=== PATIENT | male | born 1950 | race Hispanic/Latino ===

== ENCOUNTER 2017-09-21 18:15 | Inpatient (IN) | payer MEDICARE, OTHER ==
[2017-09-21] MEDS ORDERED: ZOFRAN IV ONE (19:13)
[2017-09-21] MEDS ORDERED: ANTIVERT PO ONE (19:13)
[2017-09-21] MEDS ORDERED: NACL 0.9% 250ML 250 ML IV ONE (19:13)
--- NOTE | 2017-09-21 19:18 | Emergency Department Report ---
ED Neuro Deficit HPI - General Chief Complaint: Dizziness Stated Complaint: DIZZY Time Seen by Provider: 09/21/17 18:53 Source: patient, EMS (ems notes not available at time of chart dictation), RN notes reviewed Mode of arrival: Ambulatory Limitations: No Limitations, Physical Limitation - History of Present Illness Initial Comments: This is a 66-year-old male. The patient is previously unknown to this provider. 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 The patient presents to the ER with a complaint of lightheadedness, unsteady gait, nausea, and "abdominal heaving." History symptoms are constant. They started between 2:30 and 3:00 PM. They do not radiate anywhere. They do not have exacerbating or relieving factors with the exception of attempting to walk. Patient denies headache, neck pain, chest pain, abdominal pain. He denies tinnitus, denies change in auditory acuity. He admits to black stool but he also admits to chronic ferrous sulfate supplementation. -: Sudden Location: ataxia Presenting Symptoms: Absent: Weak/Paralyzed One Side, Sudden, Severe Headache, Blurred/Loss of Vision, Facial Droop/Numbness, Unable to Speak Clearly, Altered Mental Status History of same: No Place: home Severity: moderate Quality: other Improves With: none Worsens With: none On Anticoagulants: No Context: sudden onset Associated Symptoms: malise, nausea/vomiting, vertigo, other. denies: confusion , chest pain, cough, diaphoresis, fever/chills, headaches, loss of appetite, seizures, shortness of breath, syncope, weakness - Related Data Home Medications: Previous Rx's Medication Instructions Recorded Last Taken Type Clopidogrel [Plavix] 75 mg PO QDAY #30 tablet 09/23/17 Unknown Rx Allergies/Adverse Reactions: Allergies Allergy/AdvReac Type Severity Reaction Status Date / Time Penicillins Allergy Rash Verified 09/21/17 18:55 ED Review of Systems ROS: Stated complaint: DIZZY Other details as noted in HPI Comment: All other systems reviewed and negative ED Past Medical Hx - Past Medical History Previous Medical History?: Yes Hx Arthritis: Yes Additional medical history: [place] palsy - Surgical History Past Surgical History?: Yes Hx Cholecystectomy: Yes Hx Appendectomy: Yes - Social History Smoking Status: Never Smoker Substance Use Type: None - Medications Home Medications: Home Medications Medication Instructions Recorded Confirmed Last Taken Type Clopidogrel [Plavix] 75 mg PO QDAY #30 tablet 09/23/17 Unknown Rx ED Neuro Physical Exam - General Limitations: No Limitations General appearance: alert, in no apparent distress Suspected Stroke: Yes - Head Head exam: Present: atraumatic, normocephalic - Eye Eye exam: Present: normal appearance, PERRL, EOMI, other (visual acuity intact to finger counting, color perception, reading at a close distance). Absent: nystagmus - ENT ENT exam: Present: normal exam, normal orophraynx, mucous membranes moist, normal external ear exam - Neck Neck exam: Present: normal inspection, full ROM - Respiratory Respiratory exam: Present: normal lung sounds bilaterally. Absent: respiratory distress - Cardiovascular Cardiovascular Exam: Present: regular rate, normal rhythm, normal heart sounds. Absent: systolic murmur, diastolic murmur, rubs, gallop - GI/Abdominal GI/Abdominal exam: Present: soft, normal bowel sounds. Absent: distended, tenderness, guarding, rebound, rigid - Rectal Rectal exam: Present: normal inspection, normal rectal tone, heme (+) stool - Extremities Exam Extremities exam: Present: normal inspection, full ROM, normal capillary refill. Absent: pedal edema, joint swelling, calf tenderness - Back Exam Back exam: Present: normal inspection, full ROM. Absent: tenderness, CVA tenderness (R), paraspinal tenderness, vertebral tenderness - Neurological Exam Neurological exam: Present: alert, oriented X3, abnormal gait (there is a positive Romberg examination. The patient walks with a broad-based gait. He is unable to perform tandem examination/walk.), other (there is 5 out of 5 strength in the bilateral upper and lower extremities. Sensation is intact to light touch in the bilateral upper and lower extremities. [id number] is intact bilaterally. There is no pronator drift. There is no past pointing. Extraocular movements are intact bilaterally.visual acuity intact to finger counting, color perception, reading at a close distance. Facial sensation intact to light touch in the bilateral V1, V2, V3 distribution. Shoulder shrug is intact bilaterally. The tongue is midline. Hearing is intact bilaterally. There is chronic right sided facial weakness.). Absent: motor sensory deficit - NIHSS Assessment Interval: Baseline 1a. Level of Consciousness: alert 1b. LOC Questions: answers correctly 1c. LOC Commands: performs tasks correctly 2. Best Gaze: normal 3. Visual: no visual loss 4. Facial Palsy: partial paralysis 5b. Motor Arm Right: no drift 5a. Motor Arm Left: no drift 6a. Motor Leg Left: no drift 6b. Motor Leg Right: no drift 7. Limb Ataxia: absent 8. Sensory: normal 9. Best Language: no aphasia 10. Dysarthria: normal 11. Extinction/Inattention: no abnormality Total Score: 2 Stroke Severity: Minor Stroke - Psychiatric Psychiatric exam: Present: normal affect, normal mood - Skin Skin exam: Present: warm, dry, intact, normal color. Absent: rash ED Course Vital Signs 09/21/17 09/21/17 09/21/17 18:26 18:35 18:44 Temperature 94.4 F L Pulse Rate 71 80 Respiratory 15 23 Rate Blood Pressure 134/87 134/87 O2 Sat by Pulse 93 Oximetry 09/21/17 09/21/17 09/21/17 18:46 19:10 19:24 Temperature Pulse Rate 71 Respiratory 14 16 Rate Blood Pressure 134/87 134/87 O2 Sat by Pulse 91 92 99 Oximetry 09/21/17 09/21/17 09/21/17 19:30 19:40 19:50 Temperature Pulse Rate Respiratory Rate Blood Pressure 142/87 142/87 146/90 O2 Sat by Pulse 99 93 99 Oximetry 09/21/17 09/21/17 09/21/17 20:08 20:10 20:20 Temperature Pulse Rate Respiratory Rate Blood Pressure O2 Sat by Pulse 99 97 97 Oximetry 09/21/17 09/21/17 09/21/17 20:30 20:40 20:50 Temperature Pulse Rate Respiratory Rate Blood Pressure O2 Sat by Pulse 98 93 96 Oximetry 09/21/17 09/21/17 09/21/17 21:00 21:10 21:20 Temperature Pulse Rate Respiratory Rate Blood Pressure 142/87 142/87 142/87 O2 Sat by Pulse 98 96 95 Oximetry 09/21/17 09/21/17 09/21/17 21:30 21:40 21:50 Temperature Pulse Rate Respiratory Rate Blood Pressure 142/87 142/87 142/87 O2 Sat by Pulse 96 96 93 Oximetry 09/21/17 09/21/17 09/21/17 22:00 22:10 22:20 Temperature Pulse Rate Respiratory Rate Blood Pressure 142/87 142/87 142/87 O2 Sat by Pulse 94 92 97 Oximetry 09/21/17 09/21/17 09/21/17 22:30 22:40 22:50 Temperature Pulse Rate Respiratory Rate Blood Pressure 142/87 142/87 142/87 O2 Sat by Pulse 97 96 97 Oximetry 09/21/17 09/21/17 09/21/17 23:00 23:10 23:20 Temperature Pulse Rate Respiratory Rate Blood Pressure 142/87 142/87 142/87 O2 Sat by Pulse 93 96 98 Oximetry 09/21/17 09/21/17 09/21/17 23:30 23:40 23:50 Temperature Pulse Rate Respiratory Rate Blood Pressure 142/87 142/87 142/87 O2 Sat by Pulse 94 93 92 Oximetry 09/22/17 09/22/17 00:00 00:38 Temperature 98.7 F Pulse Rate 80 Respiratory 18 Rate Blood Pressure 142/87 129/80 O2 Sat by Pulse 90 95 Oximetry - Reevaluation(s) Reevaluation #1: 09/21/17 19:18 Differential diagnosis, including not limited to: GI bleed, subacute stroke, posterior circulation event, intra-abdominal infection Assessment and plan: 66-year-old male with a primary complaint of unsteady gait and weakness. He has no lateralizing deficits but does have a few posterior circulation findings. He believes his symptoms started somewhere between 2:30 and 3:00 PM. He also has brown stool on rectal examination which appears to be trace guaiac positive. His abdomen is soft and benign. Code stroke is called overhead. Patient presented at 6:26 PM, as per triage documentation, given concern for GI bleed, not appropriate for thrombolysis at this time, we will obtain a noncontrast CT scan of the brain, discussed with consulting stroke neurology, obtain a noncontrast CT scan of the abdomen and pelvis, and a CT angiogram of the head and neck. 09/21/17 19:19 Reevaluation #2: 09/21/17 19:20 Rectal temperature was 96.8. Initial oral temperature of 94 is most likely an error. Reevaluation #3: 09/21/17 20:[address] scan of the brain is negative. X-ray of the chest was negative. Case, physical exam findings, history presented to consulting neurology, Dr. Gila Bateman He does not recommend TPA at this time, but agrees with plan to obtain CT angiogram of the head and neck. Reevaluation #4: 09/21/17 21:20 CAT scan of the abdomen and pelvis negative. CT and exam of the head and neck negative. Case presented to the Hospital physician, Dr. Singer, she accepts the patient to the medical service. - Lab Data Result diagrams: 09/21/17 19:04 09/21/17 19:04 Lab Results 09/21/17 09/21/17 09/21/17 Range/Units 19:04 19:04 19:16 WBC 12.2 H (4.5-11.0) K/mm3 RBC 4.33 (3.65-5.03) M/mm3 Hgb 14.3 (11.8-15.2) gm/dl Hct 42.0 (35.5-45.6) % MCV 97 H (84-94) fl MCH 33 H (28-32) pg MCHC 34 (32-34) % RDW 13.1 L (13.2-15.2) % Plt Count 195 (140-440) K/mm3 Lymph % (Auto) 8.9 L (13.4-35.0) % [place] % (Auto) 8.1 H (0.0-7.3) % Eos % (Auto) 0.6 (0.0-4.3) % Baso % (Auto) 0.5 (0.0-1.8) % Lymph # 1.1 L (1.2-5.4) K/mm3 [place] # 1.0 H (0.0-0.8) K/mm3 Eos # 0.1 (0.0-0.4) K/mm3 Baso # 0.1 (0.0-0.1) K/mm3 Seg Neutrophils % 81.9 H (40.0-70.0) % Seg Neutrophils # 10.0 H (1.8-7.7) K/mm3 PT 13.0 (12.2-14.9) Sec. INR 0.94 (0.87-1.13) APTT 26.0 (24.2-36.6) Sec. Thrombin Time 16.4 (15.1-19.6) Sec. Sodium 139 (137-145) mmol/L Potassium 3.8 (3.6-5.0) mmol/L Chloride 100.3 (98-107) mmol/L Carbon Dioxide 28 (22-30) mmol/L Anion Gap 15 mmol/L BUN 10 (9-20) mg/dL Creatinine 0.7 L (0.8-1.5) mg/dL Estimated GFR > 60 ml/min BUN/Creatinine Ratio 14 % Glucose 118 H (75-100) mg/dL Calcium 8.6 (8.4-10.2) mg/dL Total Creatine Kinase (55-170) units/L CK-MB (CK-2) (0.0-4.0) ng/mL CK-MB (CK-2) Rel Index (0-4) Troponin T (0.00-0.029) ng/mL Blood Type Antibody Screen 09/21/17 09/21/17 Range/Units 19:16 19:16 WBC (4.5-11.0) K/mm3 RBC (3.65-5.03) M/mm3 Hgb (11.8-15.2) gm/dl Hct (35.5-45.6) % MCV (84-94) fl MCH (28-32) pg MCHC (32-34) % RDW (13.2-15.2) % Plt Count (140-440) K/mm3 Lymph % (Auto) (13.4-35.0) % [place] % (Auto) (0.0-7.3) % Eos % (Auto) (0.0-4.3) % Baso % (Auto) (0.0-1.8) % Lymph # (1.2-5.4) K/mm3 [place] # (0.0-0.8) K/mm3 Eos # (0.0-0.4) K/mm3 Baso # (0.0-0.1) K/mm3 Seg Neutrophils % (40.0-70.0) % Seg Neutrophils # (1.8-7.7) K/mm3 PT (12.2-14.9) Sec. INR (0.87-1.13) APTT (24.2-36.6) Sec. Thrombin Time (15.1-19.6) Sec. Sodium (137-145) mmol/L Potassium (3.6-5.0) mmol/L Chloride (98-107) mmol/L Carbon Dioxide (22-30) mmol/L Anion Gap mmol/L BUN (9-20) mg/dL Creatinine (0.8-1.5) mg/dL Estimated GFR ml/min BUN/Creatinine Ratio % Glucose (75-100) mg/dL Calcium (8.4-10.2) mg/dL Total Creatine Kinase 81 (55-170) units/L CK-MB (CK-2) 2.7 (0.0-4.0) ng/mL CK-MB (CK-2) Rel Index 3.3 (0-4) Troponin T < 0.010 (0.00-0.029) ng/mL Blood Type O POSITIVE Antibody Screen Negative - EKG Data -: EKG Interpreted by Me EKG shows normal: sinus rhythm When compared to previous EKG there are: previous EKG unavailable 09/21/17 22:38 Normal sinus, 77 bpm, left axis deviation, left anterior fascicular block, not having chest pain, not consistent with STEMI, unremarkable EKG - Radiology Data Radiology results: pending, report reviewed, image reviewed - Core Measures Measure Exclusions: not indicated Critical care attestation.: If time is entered above; I have spent that time in minutes in the direct care of this critically ill patient, excluding procedure time. ED Disposition Clinical Impression: Unsteady gait Disposition: OP ADMIT IP TO THIS HOSP Is pt being admited?: Yes Does the pt Need Aspirin: Yes Condition: Stable
[2017-09-21 19:26] LABS: Basophils # (Auto) 0.1 K/mm3 (0.0-0.1); Basophils % (Auto) 0.5 % (0.0-1.8); Eosinophils # (Auto) 0.1 K/mm3 (0.0-0.4); Eosinophils % (Auto) 0.6 % (0.0-4.3); Hemoglobin 14.3 gm/dl (11.8-15.2); Lymphocytes # (Auto) 1.1 K/mm3 (1.2-5.4); Lymphocytes % (Auto) 8.9 % (13.4-35.0); Mean Corpuscular HGB Conc 34 % (32-34); Mean Corpuscular Hemoglobin 33 pg (28-32); Mean Corpuscular Volume 97 fl (84-94); Monocytes % (Auto) 8.1 % (0.0-7.3); Platelet Count 195 K/mm3 (140-440); Red Blood Count 4.33 M/mm3 (3.65-5.03); Red Cell Distribution Width 13.1 % (13.2-15.2)
--- NOTE | 2017-09-21 19:31 | Cat Scan Report ---
FINAL REPORT EXAM: CT HEAD/BRAIN WO CON HISTORY: Stroke symptoms TECHNIQUE: Standard unenhanced CT of the head at 5.0 millimeter axial increments. PRIORS: None. FINDINGS: The ventricular system is normal in size and configuration. There is no evidence for parenchymal volume loss. There is no evidence for mass lesion, mass effect, midline shift, acute intracranial hemorrhage, or acute ischemia/ infarction. No evidence for acute skull fracture is seen. No abnormality in the overlying scalp soft tissues is seen. Visualized paranasal sinuses are clear. IMPRESSION: Negative CT of the head. No acute intracranial process noted.
[2017-09-21 19:37] LABS: INR 0.94 (0.87-1.13)
[2017-09-21 19:38] LABS: Thrombin Time 16.4 Sec. (15.1-19.6)
[2017-09-21 19:48] LABS: BUN/Creatinine Ratio 14; Blood Urea Nitrogen 10 mg/dL (9-20); Calcium 8.6 mg/dL (8.4-10.2); Hemolysis Index 4
[2017-09-21 19:48] LABS: Creatine Kinase MB 2.7 ng/mL (0.0-4.0)
--- NOTE | 2017-09-21 20:06 | XRay Report ---
FINAL REPORT EXAM: XR CHEST 1V AP HISTORY: CVA; PNA TECHNIQUE: AP portable view of the chest PRIORS: None. FINDINGS: Lines, tubes, and devices: N/A Lungs and pleura: Trachea is normal in position. Lungs are clear of infiltrate, pleural effusion, vascular congestion, or pneumothorax. Cardiomediastinal silhouette: Cardiac and mediastinal silhouettes are unremarkable. Other: Bony structures are intact. IMPRESSION: No acute cardiopulmonary process seen.
--- NOTE | 2017-09-21 20:47 | Cat Scan Report ---
FINAL REPORT PROCEDURE: CT ANGIO NECK TECHNIQUE: Computerized tomographic angiography of the neck was performed after the IV injection of iodinated nonionic contrast including image processing. The image data was postprocessed using 2-dimensional multiplanar reformatted (MPR) and 3-dimensional (MIP and/or volume rendered) techniques. HISTORY: stroke sx COMPARISON: No prior studies are available for comparison. Note: Assessment of carotid artery stenosis is based on measurement of the distal internal carotid artery diameter as the denominator for stenosis calculations and the [place] Symptomatic Carotid Endarterectomy Trial (NASCET) stenosis criteria . CPT 3100F FINDINGS: Non vascular cervical structures: No significant abnormality . Aortic arch: Normal . Right carotid artery: Normal . Left carotid artery: Normal . Vertebral arteries: Normal . Multilevel cervical spondylosis is noted in the form of uncovertebral and facet degenerative changes and disc osteophyte complex formation resulting in multilevel neural foraminal stenosis. IMPRESSION: No evidence of significant carotid or vertebral stenosis. Multilevel cervical spondylosis.
--- NOTE | 2017-09-21 20:53 | Cat Scan Report ---
FINAL REPORT PROCEDURE: CT ANGIO HEAD TECHNIQUE: Computerized tomographic angiography of the head was performed after the IV injection of iodinated nonionic contrast including image processing. The image data was postprocessed using 2-dimensional multiplanar reformatted (MPR) and 3-dimensional (MIP and/or volume rendered) techniques. HISTORY: stroke sx COMPARISON: No prior studies are available for comparison. FINDINGS: Intracranial vessels: Carotid siphon: Atherosclerotic calcification is noted without any significant stenosis Anterior cerebral: Normal. Middle cerebral: Normal. Posterior cerebral:Normal. Vertebral arteries including basilar: Normal. Aneurysms: None. Dural sinuses: Normal. IMPRESSION: No significant stenosis or aneurysm formation.
--- NOTE | 2017-09-21 21:07 | Cat Scan Report ---
FINAL REPORT PROCEDURE: CT ABDOMEN PELVIS WO CON TECHNIQUE: Computerized axial tomography of the abdomen and pelvis was performed without intravenous contrast. This study is performed without intravascular contrast material and its sensitivity for abdominal and pelvic pathology, including neoplasms, inflammation, abscess, free fluid, thrombosis, arterial dissection and infarction, is reduced compared with a contrast enhanced study. HISTORY: abd pain COMPARISON: No prior studies are available for comparison. FINDINGS: Prominent interstitial markings are noted in the dependent portions of bilateral lower lobes. Liver, spleen, and adrenal glands are within normal limits. Bilateral kidneys demonstrate normal density without calculi or hydronephrosis. Urinary bladder is normally distended with normal outlines. Aorta is of normal caliber. There is no free fluid or free air. Status post cholecystectomy. Small bowel loops are within normal limits. Multiple colonic diverticula are noted without evidence of diverticulitis. There is mild degree residual stool. Appendix is not distinctly visualized. There are no inflammatory changes in the right lower quadrant. Mild prostatomegaly is identified. Mild degree degenerative changes are noted involving the lumbar spine. IMPRESSION: No acute intra-abdominal or pelvic pathology as visualized on this noncontrast study. Mild degree residual stool..
[2017-09-21] MEDS ORDERED: BABY ASPIRIN PO ONE (21:21)
[2017-09-21] MEDS ORDERED: SODIUM CHLORIDE FLUSH SYRINGE 10 ML IV PRN (23:08)
[2017-09-21] MEDS ORDERED: DULCOLAX PR PRN (23:08)
[2017-09-21] MEDS ORDERED: MILK OF MAGNESIA PO PRN (23:08)
[2017-09-21] MEDS ORDERED: ZOFRAN IV PRN (23:08)
[2017-09-21] MEDS ORDERED: TYLENOL PO PRN (23:08)
--- NOTE | 2017-09-21 23:16 | History and Physical Report ---
History of Present Illness Date of examination: 09/21/17 History of present illness: 66-year-old man history of hypothyroidism, hyperlipidemia, Alexander's palsy comes emergency room because he developed slurred speech, dizziness and his gait was off. Symptoms started around 3 PM, his symptoms are mostly resolve, he still have some dizziness. Has black stool but on iron therapy PAST MEDICAL HISTORY: Hypothyroidism, hyperlipidemia, Alexander's palsy PAST SURGICAL HISTORY: Hemorrhoidectomy, hernia repair, appendectomy, cholecystectomy SOCIAL HISTORY: Denies alcohol, tobacco, drugs FAMILY HISTORY: Hypertension Medications and Allergies Allergies Allergy/AdvReac Type Severity Reaction Status Date / Time Penicillins Allergy Rash Verified 09/21/17 18:55 Active Meds: Active Medications Acetaminophen (Tylenol) 650 mg PO Q4H PRN PRN Reason: Pain, Mild (1-3) Aspirin (Aspirin) 325 mg PO QDAY LEEANN Bisacodyl (Dulcolax) 10 mg MO QDAY PRN PRN Reason: Constipation Magnesium Hydroxide (Milk Of Magnesia) 30 ml PO Q4H PRN PRN Reason: Constipation Ondansetron HCl (Zofran) 4 mg IV Q8H PRN PRN Reason: N/V unrelieved by Reglan Sodium Chloride (Sodium Chloride Flush Syringe 10 Ml) 10 ml INJ PRN PRN PRN Reason: LINE FLUSH Exam - Physical Exam Narrative exam: Gen. appearance: Patient lying in bed, no apparent distress HEENT: Normocephalic, atraumatic, pupils equally round and reactive to light, extraocular movement intact, and no sclericterus,. No JVD or thyromegaly or nodule,neck supple, no carotid bruit ,mucous membranes moist, no exudate or erythema Heart: S1, S2, regular rate and rhythm Lungs: Clear to auscultation bilaterally, breathing comfortable Abdomen: Positive bowel sounds, nontender, nondistended, no organomegaly Extremity: No edema, cyanosis, clubbing Skin: No rash, nodules, warm, dry Neuro: Oriented 3, cranial nerves II-12 intact, speech is fluent, motor and sensory intact - Constitutional Vitals: Temp Pulse Resp BP Pulse Ox 94.4 F L 71 16 134/87 92 09/21/17 18:26 09/21/17 18:46 09/21/17 19:10 09/21/17 18:46 09/21/17 19:10 Results - Labs CBC & Chem 7: 09/21/17 19:04 09/21/17 19:04 Labs: Abnormal lab results 09/21/17 09/21/17 Range/Units 19:04 19:04 WBC 12.2 H (4.5-11.0) K/mm3 MCV 97 H (84-94) fl MCH 33 H (28-32) pg RDW 13.1 L (13.2-15.2) % Lymph % (Auto) 8.9 L (13.4-35.0) % [place] % (Auto) 8.1 H (0.0-7.3) % Lymph # 1.1 L (1.2-5.4) K/mm3 [place] # 1.0 H (0.0-0.8) K/mm3 Seg Neutrophils % 81.9 H (40.0-70.0) % Seg Neutrophils # 10.0 H (1.8-7.7) K/mm3 Creatinine 0.7 L (0.8-1.5) mg/dL Glucose 118 H (75-100) mg/dL - Imaging and Cardiology EKG: image reviewed Chest x-ray: image reviewed CT scan - abdomen: image reviewed CT Scan - head: image reviewed CT scan - pelvis: image reviewed Assessment and Plan CTA head and neck reviewed Assessment TIA Heme positive stool Hyperlipidemia Hypothyroidism Plan Admit to medicine MRI of the head, echo, do neuro checks, swallow screen Consult neurology, physical and occupational therapy GI consult, stat statin, hold aspirin for now Continue appropriate outpatient medications
[2017-09-22 07:14] LABS: Chol/HDL Ratio 2.93 %
--- NOTE | 2017-09-22 08:57 | History and Physical Report ---
History of Present Illness Date of examination: 09/22/17 Date of admission: 09/21/17 23:08 Chief complaint: FOCUSED NEURO CONSULT NOTE CC: I am asked to see this 66 M for an episode of slurred speech, vertigo and unsteady gait since yesterday, all sx now resolved. HPI: Patient in [facility] has enjoyed good health. 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 He has a heme pos stool at this time and will be worked up for this. Hx from highly articulate patient + his in room + chart. Yesterday between 2 and 3 pm while walking to his truck, he noted mild gait unsteadiness, got into his truck OK, then noted a sensation that the truck was moving before he even started it. He drove off anyway, noted mild vertigo, mild [place] without vomiting, but had no difficulty driving apparently. He called his and son and although he has was not aware of it, they noted that his speech was slurred and hard to understand. To our ED, where NIHSS was 2 due to a remote right Preston Palsy. Head CT (images reviewed) was nl, Head and Neck CTA were nl (images reviewed). Gait was somewhat broad based speech had returned to nl. Dr Reagan Soares's detailed neuro exam reviewed. He was on a regimen of ASA 81 mg daily from his port crane operator. ROS: no headache, double vision, visual impairment, weakness of any extremity, LOC, neck pain or stiffness. An 11 point ROS is negative. FH/SH not re-reviewed MEDS/ALLERGIES - see chart PE HEENT - nl save for old R Preston Palsy NECK supple no bruits COR no m rubs LUNGS nl to A EXTREM no edema or evidence of trauma NEURO MS alert, oriented x 3, speech fluent, clear and without errors, follows all commands quickly and accurately, recent and remote memory intact CN II - 12 nl save for right UMN facial deficit from remote Preston Palsy, no nystagmus, EOM full, visual [place] full to finger confrontation MOT nl strenght all four extremities prox and dist 5/5 SENS intact to light touch throughout CEREB fnf nl bilat DTRs - 1+ and symm prox and dist all four extrem, great toes downgoing to plantar stim GAIT nl, not broad based DX IMP: 1. Posterior circulation TIA with vertigo, slurred speech, and ataxic gait, lasting less than 24 hrs with all sx now resolved, on ASA 81 mg/day 2. Heme pos stool 3. Hx skipping heart beats, followed by port crane operator RECC: 1. We await head MRI and echo cardiogram to complete neuro work up 2. In view of heme pos stool, would dc ASA and switch to Plavix BID 3. Go from there. Call as needed. Carisa Hollins MD Medications and Allergies Allergies Allergy/AdvReac Type Severity Reaction Status Date / Time Penicillins Allergy Rash Verified 09/21/17 18:55 Home Medications Medication Instructions Recorded Confirmed Last Taken Type No Known Home Medications [No 09/22/17 09/22/17 Unknown History Reported Home Medications] Active Meds: Active Medications Acetaminophen (Tylenol) 650 mg PO Q4H PRN PRN Reason: Pain, Mild (1-3) Bisacodyl (Dulcolax) 10 mg OR QDAY PRN PRN Reason: Constipation Magnesium Hydroxide (Milk Of Magnesia) 30 ml PO Q4H PRN PRN Reason: Constipation Ondansetron HCl (Zofran) 4 mg IV Q8H PRN PRN Reason: N/V unrelieved by Reglan Sodium Chloride (Sodium Chloride Flush Syringe 10 Ml) 10 ml IV PRN PRN PRN Reason: LINE FLUSH Physical Examination - Vital Signs Vital Signs: Vital Signs Temp Pulse Resp BP Pulse Ox 94.4 F L 71 15 134/87 93 09/21/17 18:26 09/21/17 18:26 09/21/17 18:26 09/21/17 18:26 09/21/17 18:26 Results - Laboratory Findings CBC and BMP: 09/21/17 19:04 09/21/17 19:04 Abnormal Lab Findings: Abnormal Labs 09/21/17 09/21/17 19:04 19:04 WBC 12.2 H MCV 97 H MCH 33 H RDW 13.1 L Lymph % (Auto) 8.9 L [place] % (Auto) 8.1 H Lymph # 1.1 L [place] # 1.0 H Seg Neutrophils % 81.9 H Seg Neutrophils # 10.0 H Creatinine 0.7 L Glucose 118 H
[2017-09-22] MEDS ORDERED: ASPIRIN PO SCH (10:00)
--- NOTE | 2017-09-22 10:00 | Progress Note ---
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 His symptoms are consistent with a TIA, and have now completely resolved within less than [address] abdomen and pelvis; no acute findings CT angiogram neck; no evidence of significant stenosis CT angiogram head; no significant stenosis or aneurysm formation Problems TIA Hyperlipidemia Hypothyroidism Plan fup MRi/mra neurology consult appreciated, plavix BID Continue appropriate outpatient medications History Interval history: Review of systems Constitutional: No fevers, no malaise, no joint pains CVS: No chest pain, no orthopnea, no dyspnea on exertion, no pedal edema GI: No abdominal pain, no diarrhea, no vomiting, no constipation Respiratory: No shortness of breath, no wheezing, no coughing Hospitalist Physical - Physical exam Narrative exam: General.: Appears well, no distress, nontoxic HEENT: Moist mucous membranes, extraocular muscles intact, no lymphadenopathy Neck: supple Cardiac: S1-S2 heard Lungs: clear to auscultation bilaterally Abdomen: soft , nontender, nondistended, bowel sounds positive Extremities: no edema clubbing or cyanosis Skin: no rash or lesions Neurologic: no gross focal deficits Psych: appropriate behavior, appropriate mood, corporative, judgment intact - Constitutional Vitals: Temp Pulse Resp BP Pulse Ox 98.2 F 88 20 123/82 95 09/22/17 03:46 09/22/17 04:20 09/22/17 08:33 09/22/17 03:46 09/22/17 03:46 Results - Labs CBC & Chem 7: 09/21/17 19:04 09/21/17 19:04 Labs: Laboratory Last Values WBC 12.2 K/mm3 (4.5-11.0) H 09/21/17 19:04 RBC 4.33 M/mm3 (3.65-5.03) 09/21/17 19:04 Hgb 14.3 gm/dl (11.8-15.2) 09/21/17 19:04 Hct 42.0 % (35.5-45.6) 09/21/17 19:04 MCV 97 fl (84-94) H 09/21/17 19:04 MCH 33 pg (28-32) H 09/21/17 19:04 MCHC 34 % (32-34) 09/21/17 19:04 RDW 13.1 % (13.2-15.2) L 09/21/17 19:04 Plt Count 195 K/mm3 (140-440) 09/21/17 19:04 Lymph % (Auto) 8.9 % (13.4-35.0) L 09/21/17 19:04 Emmons % (Auto) 8.1 % (0.0-7.3) H 09/21/17 19:04 Eos % (Auto) 0.6 % (0.0-4.3) 09/21/17 19:04 Baso % (Auto) 0.5 % (0.0-1.8) 09/21/17 19:04 Lymph # 1.1 K/mm3 (1.2-5.4) L 09/21/17 19:04 Emmons # 1.0 K/mm3 (0.0-0.8) H 09/21/17 19:04 Eos # 0.1 K/mm3 (0.0-0.4) 09/21/17 19:04 Baso # 0.1 K/mm3 (0.0-0.1) 09/21/17 19:04 Seg Neutrophils % 81.9 % (40.0-70.0) H 09/21/17 19:04 Seg Neutrophils # 10.0 K/mm3 (1.8-7.7) H 09/21/17 19:04 PT 13.0 Sec. (12.2-14.9) 09/21/17 19:16 INR 0.94 (0.87-1.13) 09/21/17 19:16 APTT 26.0 Sec. (24.2-36.6) 09/21/17 19:16 Thrombin Time 16.4 Sec. (15.1-19.6) 09/21/17 19:16 Sodium 139 mmol/L (137-145) 09/21/17 19:04 Potassium 3.8 mmol/L (3.6-5.0) 09/21/17 19:04 Chloride 100.3 mmol/L (98-107) 09/21/17 19:04 Carbon Dioxide 28 mmol/L (22-30) 09/21/17 19:04 Anion Gap 15 mmol/L 09/21/17 19:04 BUN 10 mg/dL (9-20) 09/21/17 19:04 Creatinine 0.7 mg/dL (0.8-1.5) L 09/21/17 19:04 Estimated GFR > 60 ml/min 09/21/17 19:04 BUN/Creatinine Ratio 14 % 09/21/17 19:04 Glucose 118 mg/dL (75-100) H 09/21/17 19:04 Calcium 8.6 mg/dL (8.4-10.2) 09/21/17 19:04 Total Creatine Kinase 81 units/L (55-170) 09/21/17 19:16 CK-MB (CK-2) 2.7 ng/mL (0.0-4.0) 09/21/17 19:16 CK-MB (CK-2) Rel Index 3.3 (0-4) 09/21/17 19:16 Troponin T < 0.010 ng/mL (0.00-0.029) 09/21/17 19:16 Triglycerides 85 mg/dL (2-149) 09/22/17 05:52 Cholesterol 141 mg/dL (50-199) 09/22/17 05:52 LDL Cholesterol Direct 86 mg/dL (50-130) 09/22/17 05:52 HDL Cholesterol 48 mg/dL (40-59) 09/22/17 05:52 Cholesterol/HDL Ratio 2.93 % 09/22/17 05:52 Blood Type O POSITIVE 09/21/17 19:16 Antibody Screen Negative 09/21/17 19:16
--- NOTE | 2017-09-22 11:16 | Magnetic Resonance Report ---
MRI OF THE BRAIN WITHOUT CONTRAST: HISTORY: CVA PROCEDURE: Multiplanar, multisequence MR imaging of the brain without IV contrast was performed. FINDINGS: Compared to the CT head dated 09/21/17. Mild nonspecific chronic white matter changes are identified. Otherwise, the brain parenchyma signal intensity and its reynolds white interface are within normal limits on all sequences. No evidence for acute ischemia, hemorrhage or mass. No chronic infarct or extra-axial fluid collection. The midline structures are central. The basal cisterns are patent. Normal ventricular size. The orbital cavities and sella turcica demonstrate no abnormality. The visualized paranasal sinuses and mastoid air cells are well aerated. IMPRESSION: Mild nonspecific chronic white matter changes. No evidence for acute ischemia, hemorrhage or mass.
[2017-09-23 10:13] VITALS: BP 123/85
--- NOTE | 2017-09-23 13:06 | Discharge Summary ---
Providers - Providers Date of Admission: 09/21/17 23:08 Date of discharge: 09/23/17 Attending physician: RAÚL RITCHIE MD 09/21/17 Consult to Physician [CONS] Routine Comment: Consulting Provider: LENORE VALDOVINOS Physician Instructions: Reason For Exam: tia 09/21/17 23:10 Occupational Therapy Evaluate and Treat [CONS] Routine Comment: Reason For Exam: Neuro deficits Physical Therapy Evaluation and Treat [CONS] Routine Comment: Reason For Exam: Neuro deficits Primary care physician: ASSISTANT PROFESSOR OF PSYCHOLOGY Hospitalization Reason for admission: TIA, dizziness Condition: Stable Pertinent studies: CT, MRI, MRA head no acute intracranial abnormalities identified Carotid Doppler, echo unremarkable Hospital course: History of present illness: 66-year-old man history of hypothyroidism, hyperlipidemia, Alexander's palsy comes emergency room because he developed slurred speech, dizziness and his gait was off. Symptoms started around 3 PM, his symptoms are mostly resolve, he still have some dizziness. Has black stool but on iron therapy. Patient was admitted to the floor and stroke workup was and results were unremarkable. Patient's dizziness, slurred speech resolved. Neurology evaluation appreciated. Patient is hemodynamically stable. Neurology recommended to discontinue aspirin and put him on Plavix. Patient's questions and concerns were addressed at the bedside. Patient discharged home. Disposition: DC- TO HOME OR SELFCARE Time spent for discharge: 31 minutes - Discharge Diagnoses (1) TIA (transient ischemic attack) Status: Acute Core Measure Documentation - Palliative Care Palliative Care/ Comfort Measures: Not Applicable - Core Measures Any of the following diagnoses?: none Exam - Physical Exam Narrative exam: Not in cardiopulmonary distress. The patient appeared well nourished and normally developed. Vital signs as documented. Head exam is unremarkable. No scleral icterus . Neck is without jugular venous distension, thyromegaly, or carotid bruits. Lungs are clear to auscultation. Cardiac exam reveals regular rate and Rhythm. First and second heart sounds normal. No murmurs, rubs or gallops. Abdominal exam reveals normal bowel sounds, no masses, no organomegaly and no aortic enlargement. Extremities are nonedematous and both femoral and pedal pulses are normal. 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 No focal weakness. - Constitutional Vitals: Temp Pulse Resp BP Pulse Ox 97.6 F 91 H 16 123/85 94 09/23/17 09:11 09/23/17 09:11 09/23/17 09:11 09/23/17 09:11 09/23/17 09:11 Plan Activity: no restrictions Weight Bearing Status: Full Weight Bearing Diet: low cholesterol Follow up with: PRIMARY CARE, [Primary Care Provider] - 3-5 Days Prescriptions: Clopidogrel [Plavix] 75 mg PO QDAY #30 tablet
== END 2017-09-23 16:50 | disposition home or self-care (01) | DRG 69 ==
LOC: ED 18:15 → 4A 23:08
PROVIDERS: ADMIT Internal Medicine; ATTEND Internal Medicine
DX: G45.9 Transient cerebral ischemic attack, unspecified (principal); E78.5 Hyperlipidemia, unspecified; Z88.0 Allergy status to penicillin; Z90.49 Acquired absence of other specified parts of digestive tract; G51.0 Bell's palsy; M19.90 Unspecified osteoarthritis, unspecified site; E03.9 Hypothyroidism, unspecified; Z82.49 Family history of ischemic heart disease and other diseases of the circulatory system
CPT/HCPCS: 36415; 70450; 70496; 70498; 70551; 71045; 74176; 80048; 80061; 82271; 82550; 82553; 84484; 85025; 85610; 85670; 85730; 86850; 86900; 86901; 93005; 93010; 93306; 96374; 96375; G8987-GO; G8988-GO; G8989-GO; J2405; J7050; Q9967

== ENCOUNTER 2019-06-21 14:42 | Inpatient (IN) | payer MEDICARE, OTHER ==
--- NOTE | 2019-06-21 15:55 | Emergency Department Report ---
Blank Doc - Documentation Documentation: 68-year-old male that presents with dizziness and weakness. This initial assessment/diagnostic orders/clinical plan/treatment(s) is/are subject to change based on patient's health status, clinical progression and re- assessment by fellow clinical providers in the ED. Further treatment and workup at subsequent clinical providers discretion. Patient/guardians urged not to elope from the ED as their condition may be serious if not clinically assessed and managed. Initial orders include: 1- Patient sent to [facility] for further evaluation and treatment 2- labs 3- EKG
[2019-06-21 16:37] LABS: Basophils # (Auto) 0.1 K/mm3 (0.0-0.1); Eosinophils # (Auto) 0.1 K/mm3 (0.0-0.4); Eosinophils % (Auto) 1.3 % (0.0-4.3); Hematocrit 42.1 % (35.5-45.6); Hemoglobin 14.2 gm/dl (11.8-15.2); Lymphocytes # (Auto) 1.3 K/mm3 (1.2-5.4); Lymphocytes % (Auto) 19.7 % (13.4-35.0); Mean Corpuscular HGB Conc 34 % (32-34); Mean Corpuscular Volume 97 fl (84-94); Monocytes # (Auto) 0.8 K/mm3 (0.0-0.8); Monocytes % (Auto) 12.3 % (0.0-7.3); Platelet Count 234 K/mm3 (140-440); Red Blood Count 4.34 M/mm3 (3.65-5.03); Red Cell Distribution Width 13.6 % (13.2-15.2)
[2019-06-21 16:50] LABS: BUN/Creatinine Ratio 14; Blood Urea Nitrogen 10 mg/dL (9-20); Hemolysis Index 11
[2019-06-21 16:55] LABS: Bilirubin,Urine NEG (Negative); Blood,Urine NEG (Negative); Color,Urine Yellow (Yellow); Mucus,Urine FEW /HPF; Protein,Urine <15 mg/dL mg/dL (Negative); Urobilinogen,Urine < 2.0 mg/dL (<2.0); WBC,Urine < 1.0 /HPF (0.0-6.0)
[2019-06-21 17:07] LABS: Amphetamine Screen,Urine PRESUMPTIVE NEGATIVE; Benzodiazepines Screen,Urine PRESUMPTIVE NEGATIVE; Cannabinoid Screen,Urine PRESUMPTIVE NEGATIVE; Cocaine Screen,Urine PRESUMPTIVE NEGATIVE; Methadone Screen,Urine PRESUMPTIVE NEGATIVE; Opiate Screen,Urine PRESUMPTIVE NEGATIVE
[2019-06-21] MEDS ORDERED: MECLIZINE 25 MG TAB PO ONE (18:15)
[2019-06-21] MEDS ORDERED: SODIUM CHLORIDE 0.9% 500 ML 500 ML IV ONE (18:15)
[2019-06-21] MEDS ORDERED: TETANUS,DIPH,PERTUSS(ACELL) VACCINE 0.5 ML SYRINGE IM ONE (18:15)
[2019-06-21] MEDS ORDERED: DOXYCYCLINE 100 MG CAPSULE PO ONE (18:15)
--- NOTE | 2019-06-21 18:26 | Consultation ---
History of Present Illness Consult date: 06/21/19 Medications and Allergies Allergies Allergy/AdvReac Type Severity Reaction Status Date / Time Penicillins Allergy Rash Verified 07/23/18 09:40 Home Medications Medication Instructions Recorded Confirmed Last Taken Type Clopidogrel [Plavix] 75 mg PO QDAY #30 tablet 09/23/17 Unknown Rx Naproxen [Naprosyn] 500 mg PO BID #30 tablet 07/23/18 Unknown Rx traMADoL [Ultram 50 MG tab] 50 mg PO Q6HR PRN #20 tablet 07/23/18 Unknown Rx Active Meds: Active Medications Sodium Chloride (Nacl 0.9% 500 Ml) 500 mls @ 999 mls/hr IV ONCE ONE Stop: 06/21/19 18:45 Physical Examination - Vital Signs Vital Signs: Vital Signs Temp Pulse Resp BP Pulse Ox 97.7 F 76 18 125/84 97 06/21/19 15:50 06/21/19 15:50 06/21/19 15:50 06/21/19 15:50 06/21/19 15:50 Results - Laboratory Findings CBC and BMP: 06/21/19 16:12 06/21/19 16:12 Abnormal Lab Findings: Abnormal Labs 06/21/19 06/21/19 06/21/19 16:12 16:12 16:30 MCV 97 H MCH 33 H [place] % (Auto) 12.3 H Creatinine 0.7 L Glucose 104 H Urine pH 8.0 H Assessment and Plan [facility] Date of Service: 06/21/2019 18:16:43 Impression: RO Acute Ischemic Stroke vs peripheral vertigo Comments: patient with history of right bells palsy presents with feeling off balance and positional vertigo, concerning for central cause. last time known well>4.5 hours therefore not a candidate for IV tPA. symptoms not consistent with Large Vessel Occlusion Mechanism of Stroke: Possible Thromboembolic Possible Cardioembolic Small Vessel Disease Metrics: Last Known Well: 06/21/2019 10:00:00 [employer] Notification Time: 06/21/2019 18:15:58 Arrival Time: 06/21/2019 14:42:00 Stamp Time: 06/21/2019 18:16:43 Time First Login Attempt: 06/21/2019 18:17:53 Video Start Time: 06/21/2019 18:17:53 Symptoms: dizziness NIHSS Start Assessment Time: 06/21/2019 18:21:49 Patient is not a candidate for tPA. Patient was not deemed candidate for tPA thrombolytics because of Last Well Known Above 4.5 Hours. Video End Time: 06/21/2019 18:30:02 CT head was not reviewed. STAT head CT should be done in ER. Advanced imaging was not obtained as the presentation was not suggestive of Large Vessel Occlusive Disease. ER Physician notified of the decision on thrombolytics management on 06/21/2019 18:30:01 Our recommendations are outlined below. Recommendations: Activate Stroke Protocol Admission/Order Set STAT head CT in ER Stroke/Telemetry Floor Neuro Checks Bedside Swallow Eval DVT Prophylaxis IV Fluids, Normal Saline Head of Bed Below 30 Degrees Euglycemia and Avoid Hyperthermia (PRN Acetaminophen) Antiplatelet Therapy Recommended if head CT does not show hemorrhage please check orthostatic vital signs Recommended Scan: MRI Head with and Without Contrast MRA Head and Neck Without Contrast When Available - Stroke Protocol Echocardiogram - Transthoracic Echocardiogram Lipid Panel to Be Obtained, if Not Done in the Last Three Months Therapies: Physical Therapy, Occupational Therapy, Speech Therapy Assessment When Applicable Dysphaghia Screen: Swallow Evaluation, Bedside NPO Until Swallow Evaluation DVT prophylaxis: SCDs, Pneumatic Compression Disposition: Follow up with Teleneurology Follow up Sign Out: Discussed with Emergency Department Provider History of Present Illness: Patient is a 68 year old Male. Patient was brought by private transportation with symptoms of dizziness Patient is a(n) 68 years old male , with history of right sided bells palsy, Hyperlipidemia/Hypercholesterolemia , thyroid disease, TIA last known well: 10:00 Started having dizziness that happens when standing up. (feels off balance) Also tinnitus in left ear for about 2 days. had a similar presentation last year with negative work up and was called a TIA. CT head was not reviewed. Last seen normal was beyond 4.5 hours of presentation. There is no history of hemorrhagic complications or intracranial hemorrhage. There is no history of Recent Anticoagulants. There is no history of recent major surgery. There is no history of recent stroke. Examination: 1A: Level of Consciousness - Alert; keenly responsive + 0 1B: Ask Month and Age - Both Questions Right + 0 1C: Blink Eyes & Squeeze Hands - Performs Both Tasks + 0 2: Test Horizontal Extraocular Movements - Normal + 0 3: Test Visual Antonio - No Visual Loss + 0 4: Test Facial Palsy (Use Grimace if Obtunded) - Unilateral Complete paralysis (upper/lower face) + 3 (chronic) 5A: Test Left Arm Motor Drift - No Drift for 10 Seconds + 0 5B: Test Right Arm Motor Drift - No Drift for 10 Seconds + 0 6A: Test Left Leg Motor Drift - No Drift for 5 Seconds + 0 6B: Test Right Leg Motor Drift - No Drift for 5 Seconds + 0 7: Test Limb Ataxia (FNF/Heel-Hernandez) - No Ataxia + 0 8: Test Sensation - Normal; No sensory loss + 0 9: Test Language/Aphasia - Normal; No aphasia + 0 10: Test Dysarthria - Normal + 0 11: Test Extinction/Inattention - No abnormality + 0 NIHSS Score: 3 (chronic deficit) Patient was informed the Neurology Consult would happen via TeleHealth consult by way of interactive audio and video telecommunications and consented to receiving care in this manner. Due to the immediate potential for life-threatening deterioration due to underly ing acute neurologic illness, I spent 35 minutes providing critical care. This time includes time for face to face visit via telemedicine, review of medical records, imaging studies and discussion of findings with providers, the patient and/or family. Dr Jose Dixon [facility] Case [id number]
[2019-06-21] MEDS ORDERED: ONDANSETRON 4 MG/2 ML INJ IV ONE (18:30)
[2019-06-21 18:55] LABS: INR 0.97 (0.87-1.13)
[2019-06-21 18:56] LABS: Partial Thromboplastin Time 32.7 Sec. (24.2-36.6)
--- NOTE | 2019-06-21 19:10 | Cat Scan Report ---
CT abdomen pelvis wo con INDICATION: abd pain burning. TECHNIQUE: All CT scans at this location are performed using the following dose modulation technique: Automated exposure control. CONTRAST: None. COMPARISON: CT abdomen and pelvis 09/21/2017. CT abdomen: The parenchymal organs are unremarkable in appearance. Negative for abdominal mass, fluid or inflammation. The bowel is not dilated or thickened. Previous cholecystectomy. Negative for biliary dilatation. CT PELVIS: Negative for distal ureteral stone, pelvic fluid collection. Status post previous appendectomy. Sigmoid diverticula are noninflamed. IMPRESSION: 1. Negative for obstruction or localized inflammation. 2. Noninflamed colonic diverticulosis. Signer Name: Ney Frazier MD Signed: 06/21/2019 7:06 PM Workstation Name: [id number]
--- NOTE | 2019-06-21 19:14 | Cat Scan Report ---
CT HEAD WITHOUT CONTRAST INDICATION / CLINICAL INFORMATION: unsteady gait. Code stroke TECHNIQUE: All CT scans at this location are performed using CT dose reduction for ALARA by means of automated e xposure control. COMPARISON: Head CT 07/23/2018 and MRI brain 09/22/2017 FINDINGS: HEMORRHAGE: No evidence of intracranial hemorrhage or extra-axial fluid collection. EXTRA-AXIAL SPACES: Cortical sulci, sylvian fissures and basilar cisterns have an unremarkable appear ance. VENTRICULAR SYSTEM: The ventricular system is of normal size and configuration. CEREBRAL PARENCHYMA: No areas of abnormal brain parenchymal attenuation are identified. There is no i ndication of recent infarction. MIDLINE SHIFT OR HERNIATION: There is no mass effect. CEREBELLUM / BRAINSTEM: Brainstem and cerebellum have an unremarkable appearance. INTRACRANIAL VESSELS: Mildly calcified atherosclerotic plaque is seen along the course of the [place] segments of both internal carotid arteries. ORBITS: visualized portions of the orbits have an unremarkable appearance. SOFT TISSUES of HEAD: No significant abnormality. CALVARIUM: Evaluation of bone windows reveals no abnormalities. PARANASAL SINUSES / MASTOID AIR CELLS: Paranasal sinuses are free from inflammatory mucosal disease. Mastoid air cells are normally pneumatized. IMPRESSION: 1. No abnormality on head CT without contrast. No interval change. Code stroke: I called report to Dr. Mchugh the [facility] emergency department at about 18 08 (Central standard time) Signer Name: Jose Moreno MD Signed: 06/21/2019 7:09 PM Workstation Name: [id number]
[2019-06-21] MEDS ORDERED: FAMOTIDINE 20 MG/2 ML INJ IV ONE (20:00)
--- NOTE | 2019-06-21 20:00 | Emergency Department Report ---
ED General Adult HPI - General Chief complaint: Dizziness Stated complaint: DIZZY/STOMACH PAIN Time Seen by Provider: 06/21/19 15:46 Source: patient, RN notes reviewed, old records reviewed Mode of arrival: Ambulatory Limitations: Physical Limitation - History of Present Illness Initial comments: This is a 68-year-old gentleman whom I have evaluated the past. Past medical history includes chronic right-sided facial Alexander's palsy, hypothyroidism, high cholesterol, transient ischemic attack. The patient presents to the ER with a complaint of unsteady gait, dizziness, "waves" in his left ear. He denies ringing and buzzing sounds. He denies physical pain, but endorses that his abdomen is "burning." no complaint of headache, neck pain, chest pain, urinary symptoms, focal extremity weakness and/or numbness. Also has left anterior distal tibia erythema, with minimal pain. Patient admitted to this hospital by myself August 2017 for similar symptoms, had negative MRI of the brain, unremarkable CT angiogram head and neck, and unremarkable CT scan abdomen and pelvis. He is not sure if the symptoms today are similar for more intense than when he previously presented in August 2017. His sensation of dizziness/unsteady gait is intermittent, and improves with position, and worsens when sitting up. -: Gradual, hour(s), days(s) Location: left, lower extremity Radiation: other Consistency: intermittent Improves with: other Worsens with: other - Related Data Previous Rx's Medication Instructions Recorded Last Taken Type Clopidogrel [Plavix] 75 mg PO QDAY #30 tablet 09/23/17 Unknown Rx Naproxen [Naprosyn] 500 mg PO BID #30 tablet 07/23/18 Unknown Rx traMADoL [Ultram 50 MG tab] 50 mg PO Q6HR PRN #20 tablet 07/23/18 Unknown Rx Allergies Allergy/AdvReac Type Severity Reaction Status Date / Time Penicillins Allergy Rash Verified 07/23/18 09:40 ED Review of Systems ROS: Stated complaint: DIZZY/STOMACH PAIN Other details as noted in HPI Constitutional: malaise. denies: fever ENT: other (as per history of present illness). denies: ear pain, throat pain, dental pain, epistaxis, congestion Respiratory: denies: wheezing Cardiovascular: denies: syncope Gastrointestinal: denies: abdominal pain Genitourinary: denies: dysuria Musculoskeletal: denies: myalgia Neurological: abnormal gait. denies: vertigo ED Past Medical Hx - Past Medical History Hx CVA: Yes (TIA 09/13) Hx Arthritis: Yes Additional medical history: [place] palsy, high cholesterol, hypothyriodism - Surgical History Hx Cholecystectomy: Yes Hx Appendectomy: Yes - Social History Smoking Status: Never Smoker Substance Use Type: None - Medications Home Medications: Home Medications Medication Instructions Recorded Confirmed Last Taken Type Clopidogrel [Plavix] 75 mg PO QDAY #30 tablet 09/23/17 Unknown Rx Naproxen [Naprosyn] 500 mg PO BID #30 tablet 07/23/18 Unknown Rx traMADoL [Ultram 50 MG tab] 50 mg PO Q6HR PRN #20 tablet 07/23/18 Unknown Rx ED Physical Exam - General Limitations: Physical Limitation General appearance: alert, anxious, obese - Head Head exam: Present: atraumatic, normocephalic - Eye Eye exam: Present: normal appearance, PERRL, EOMI, other (visual acuity is intact to finger counting and color perception at close distance.). Absent: nystagmus - ENT ENT exam: Present: normal exam, normal orophraynx, mucous membranes moist, TM's normal bilaterally, normal external ear exam - Neck Neck exam: Present: normal inspection, full ROM. Absent: tenderness, meningismus - Respiratory Respiratory exam: Present: normal lung sounds bilaterally. Absent: respiratory distress - Cardiovascular Cardiovascular Exam: Present: regular rate, normal rhythm, normal heart sounds. Absent: bradycardia, tachycardia, irregular rhythm, systolic murmur, diastolic murmur, rubs, gallop - GI/Abdominal GI/Abdominal exam: Present: soft. Absent: distended, tenderness, guarding, rebound, rigid, pulsatile mass - Rectal Rectal exam: Present: deferred - Extremities Exam Extremities exam: Present: full ROM, pedal edema, other (2+ pulses noted in the bilateral upper and lower extremities. The pelvis is stable. There is no long bony tenderness. The muscular compartments are soft. There is no redness, pus, streaking or erythema.). Absent: normal inspection (on the left distal anterior tibial region, skin abrasion noted, with surrounding erythema.), tenderness, calf tenderness - Back Exam Back exam: Present: normal inspection. Absent: tenderness, CVA tenderness (R), CVA tenderness (L), paraspinal tenderness, vertebral tenderness - Neurological Exam Neurological exam: Present: alert, oriented X3, abnormal gait (broad-based unsteady gait), other (there is no facial droop. The tongue is midline. Extraocular movements are intact bilaterally. Speaking in full sentences. Hearing is grossly intact. 5 out of 5 strength bilateral upper and lower extre mities. Sensation is intact to light touch bilateral upper and lower extremities.). Absent: motor sensory deficit - Psychiatric Psychiatric exam: Present: anxious - Skin Skin exam: Present: warm, rash, erythema ED Course Vital Signs 06/21/19 06/21/19 15:50 17:57 Temperature 97.7 F Pulse Rate 76 89 Respiratory 18 16 Rate Blood Pressure 125/84 Blood Pressure 130/71 [Left] O2 Sat by Pulse 97 97 Oximetry - Reevaluation(s) Reevaluation #1: 06/21/19 21:33 The case is presented to the Hospital physician, Dr. Powers, who accepts the patient to his service ED Medical Decision Making - Lab Data Result diagrams: 06/21/19 16:12 06/21/19 16:12 Vital Signs 06/21/19 06/21/19 15:50 17:57 Temperature 97.7 F Pulse Rate 76 89 Respiratory 18 16 Rate Blood Pressure 125/84 Blood Pressure 130/71 [Left] O2 Sat by Pulse 97 97 Oximetry Lab Results 06/21/19 06/21/19 06/21/19 Range/Units 16:12 16:12 16:30 WBC 6.4 (4.5-11.0) K/mm3 RBC 4.34 (3.65-5.03) M/mm3 Hgb 14.2 (11.8-15.2) gm/dl Hct 42.1 (35.5-45.6) % MCV 97 H (84-94) fl MCH 33 H (28-32) pg MCHC 34 (32-34) % RDW 13.6 (13.2-15.2) % Plt Count 234 (140-440) K/mm3 Lymph % (Auto) 19.7 (13.4-35.0) % [place] % (Auto) 12.3 H (0.0-7.3) % Eos % (Auto) 1.3 (0.0-4.3) % Baso % (Auto) 1.0 (0.0-1.8) % Lymph # 1.3 (1.2-5.4) K/mm3 [place] # 0.8 (0.0-0.8) K/mm3 Eos # 0.1 (0.0-0.4) K/mm3 Baso # 0.1 (0.0-0.1) K/mm3 Seg Neutrophils % 65.7 (40.0-70.0) % Seg Neutrophils # 4.2 (1.8-7.7) K/mm3 PT (12.2-14.9) Sec. INR (0.87-1.13) APTT (24.2-36.6) Sec. Sodium 139 (137-145) mmol/L Potassium 4.0 (3.6-5.0) mmol/L Chloride 100.4 (98-107) mmol/L Carbon Dioxide 25 (22-30) mmol/L Anion Gap 18 mmol/L BUN 10 (9-20) mg/dL Creatinine 0.7 L (0.8-1.5) mg/dL Estimated GFR > 60 ml/min BUN/Creatinine Ratio 14 % Glucose 104 H (75-100) mg/dL Calcium 9.0 (8.4-10.2) mg/dL Magnesium (1.7-2.3) mg/dL Total Creatine Kinase (55-170) units/L Urine Color Yellow (Yellow) Urine Turbidity Clear (Clear) Urine pH 8.0 H (5.0-7.0) Ur Specific [place] 1.014 (1.003-1.030) Urine Protein <15 mg/dl (Negative) mg/dL Urine Glucose (UA) Neg (Negative) mg/dL Urine Ketones Neg (Negative) mg/dL Urine Blood Neg (Negative) Urine Nitrite Neg (Negative) Urine Bilirubin Neg (Negative) Urine Urobilinogen < 2.0 (<2.0) mg/dL Ur Leukocyte Esterase Neg (Negative) Urine WBC (Auto) < 1.0 (0.0-6.0) /HPF Urine RBC (Auto) 1.0 (0.0-6.0) /HPF Urine Mucus Few /HPF Urine Opiates Screen Urine Methadone Screen Ur Barbiturates Screen Ur Phencyclidine Scrn Ur Amphetamines Screen U Benzodiazepines Scrn Urine Cocaine Screen U Marijuana (THC) Screen Drugs of Abuse Note 1206/21/19 06/21/19 Range/Units 16:30 18:24 18:40 WBC (4.5-11.0) K/mm3 RBC (3.65-5.03) M/mm3 Hgb (11.8-15.2) gm/dl Hct (35.5-45.6) % MCV (84-94) fl MCH (28-32) pg MCHC (32-34) % RDW (13.2-15.2) % Plt Count (140-440) K/mm3 Lymph % (Auto) (13.4-35.0) % [place] % (Auto) (0.0-7.3) % Eos % (Auto) (0.0-4.3) % Baso % (Auto) (0.0-1.8) % Lymph # (1.2-5.4) K/mm3 [place] # (0.0-0.8) K/mm3 Eos # (0.0-0.4) K/mm3 Baso # (0.0-0.1) K/mm3 Seg Neutrophils % (40.0-70.0) % Seg Neutrophils # (1.8-7.7) K/mm3 PT 13.0 (12.2-14.9) Sec. INR 0.97 (0.87-1.13) APTT 32.7 (24.2-36.6) Sec. Sodium (137-145) mmol/L Potassium (3.6-5.0) mmol/L Chloride (98-107) mmol/L Carbon Dioxide (22-30) mmol/L Anion Gap mmol/L BUN (9-20) mg/dL Creatinine (0.8-1.5) mg/dL Estimated GFR ml/min BUN/Creatinine Ratio % Glucose (75-100) mg/dL Calcium (8.4-10.2) mg/dL Magnesium 2.20 (1.7-2.3) mg/dL Total Creatine Kinase 138 (55-170) units/L Urine Color (Yellow) Urine Turbidity (Clear) Urine pH (5.0-7.0) Ur Specific [place] (1.003-1.030) Urine Protein (Negative) mg/dL Urine Glucose (UA) (Negative) mg/dL Urine Ketones (Negative) mg/dL Urine Blood (Negative) Urine Nitrite (Negative) Urine Bilirubin (Negative) Urine Urobilinogen (<2.0) mg/dL Ur Leukocyte Esterase (Negative) Urine WBC (Auto) (0.0-6.0) /HPF Urine RBC (Auto) (0.0-6.0) /HPF Urine Mucus /HPF Urine Opiates Screen Presumptive negative Urine Methadone Screen Presumptive negative Ur Barbiturates Screen Presumptive negative Ur Phencyclidine Scrn Presumptive negative Ur Amphetamines Screen Presumptive negative U Benzodiazepines Scrn Presumptive negative Urine Cocaine Screen Presumptive negative U Marijuana (THC) Screen Presumptive negative Drugs of Abuse Note Disclamer - EKG Data -: EKG Interpreted by Dc EKG shows normal: sinus rhythm Rate: normal - EKG Data 06/21/19 19:58 EKG today shows a sinus rhythm, there is a leftward axis deviation, there is premature ventricular contraction, motion artifact, borderline left anterior fascicular block, abnormal EKG, not consistent with ST elevation myocardial infarction. - Radiology Data Radiology results: pending, report reviewed, image reviewed Noncontrast CT scan of the brain is negative for acute disease. Noncontrast CT scan of the abdomen and pelvis is also negative for acute disease. Chronic findings noted. - Medical Decision Making Differential diagnosis, including but not limited to: Central vertigo, peripheral vertigo AAA, constipation, obstruction, left lower extremity cellulitis Assessment and plan: 68-year-old male with recurrent complaint of unsteady gait, and nonspecific auditory perception. His exam is not suggestive of a large vessel occlusion. He presents more than 4.5 hours after his last known well time, and is therefore not a TPA candidate. Noncontrast CT scan of the brain is negative for acute disease. Seen by stroke neurology, Dr. Diaz. Admission is recommended for further workup. Patient's symptoms we treated with aspirin, Pepcid, and meclizine. No abdominal tenderness, rebound or guarding, CT scan of the abdomen and pelvis negative for acute disease. Has mild left lower extremity cellulitis without evidence of compartment syndro me or abscess. Doxycycline antibiotic is ordered. Hospital physician is paged to arrange admission. Critical care attestation.: If time is entered above; I have spent that time in minutes in the direct care of this critically ill patient, excluding procedure time. ED Disposition Clinical Impression: Unsteady gait, Lower extremity cellulitis, Abdominal discomfort Disposition: DC-[id number] OP ADMIT IP TO THIS HOSP Is pt being admited?: Yes Does the pt Need Aspirin: Yes Condition: Stable Referrals: PRIMARY CARE,MD [Primary Care Provider] - 3-5 Days
[2019-06-21] MEDS ORDERED: ASPIRIN 81 MG TAB CHEW PO ONE (20:01)
[2019-06-21] MEDS ORDERED: ACETAMINOPHEN 325 MG TAB PO PRN ×2 (22:08)
[2019-06-21] MEDS ORDERED: PROMETHAZINE 25 MG RECT SUPP PR PRN (22:08)
[2019-06-21] MEDS ORDERED: MAGNESIUM HYDROXIDE (MOM) ORAL LIQD UDC PO PRN ×2 (22:08)
[2019-06-21] MEDS ORDERED: METOCLOPRAMIDE 10 MG TAB PO PRN (22:08)
[2019-06-21] MEDS ORDERED: ONDANSETRON 4 MG/2 ML INJ IV PRN ×2 (22:08)
--- NOTE | 2019-06-21 23:29 | History and Physical Report ---
History of Present Illness Date of examination: 06/21/19 Date of admission: 06/21/19 21:33 Chief complaint: Unsteady gait History of present illness: 68-year-old male with known history of Alexander's palsy, hyperlipidemia, hypothyroidism seen in the emergency room today complaining of unsteady gait. This has been ongoing for the past few days. He has also been having some buzzing sensation in the ears. He denies any headache but has had some occasional dizziness. He denies any chest pain or shortness of breath, no nausea vomiting, no fever or chills. Dizziness is said to be worse when sitting up or standing. Improves with lying down. He was evaluated by the teleneurologist and recommendation is to have patient evaluated for possible TIA/CVA. Past History Past Medical History: arthritis, hyperlipidemia, hypothyroidism, other (History of Alexander's palsy) Past Surgical History: appendectomy, cholecystectomy, total knee replacement (Left total knee replacement, arthroscopic surgery in the left knee in the past) Social history: no significant social history Family history: CAD (Both parents had CVA and [place] and at ages 80), stroke Medications and Allergies Allergies Allergy/AdvReac Type Severity Reaction Status Date / Time Penicillins Allergy Rash Verified 07/23/18 09:40 Home Medications Medication Instructions Recorded Confirmed Last Taken Type Clopidogrel [Plavix] 75 mg PO QDAY #30 tablet 09/23/17 06/21/19 Unknown Rx Ascorbic Acid [Vitamin C] 500 mg PO DAILY 06/21/19 06/21/19 Unknown History Carboxymethylcellulose Sodium 1 - 2 drop OU TID 06/21/19 06/21/19 Unknown History [Thera Tears 1%] Celecoxib [celeBREX] 200 mg PO DAILY 06/21/19 06/21/19 Unknown History Cholecalciferol (Vitamin D3) 25 mg PO DAILY 06/21/19 06/21/19 Unknown History [Vitamin D3] Dicyclomine [Bentyl] 10 mg PO TID 06/21/19 06/21/19 Unknown History Iron,Carb/Vit C/Vit B12/Folic 60 mg PO DAILY 06/21/19 06/21/19 Unknown History [Iron 100 Plus Tablet] Levothyroxine [Synthroid] 112 mcg PO QAM 06/21/19 06/21/19 Unknown History Lovastatin 20 mg PO HS 06/21/19 06/21/19 Unknown History Magnesium 250 mg PO DAILY 06/21/19 06/21/19 Unknown History Omeprazole 40 mg PO DAILY 06/21/19 06/21/19 Unknown History cycloSPORINE (NF) [Restasis (Nf)] 1 each OP BID 06/21/19 06/21/19 Unknown History traMADoL [Ultram 50 MG tab] 50 mg PO TID PRN 06/21/19 06/21/19 Unknown History Active Meds: Active Medications Acetaminophen (Tylenol) 650 mg PO Q4H PRN PRN Reason: Pain MILD(1-3)/Fever >100.5/ANAYA Aspirin (Aspirin) 325 mg PO QDAY LEEANN Bisacodyl (Dulcolax) 10 mg [place] QDAY PRN PRN Reason: Constipation Clindamycin HCl (Cleocin 600 Mg/50 Ml) 600 mg in 50 mls @ 100 mls/hr IV Q8HR LEEANN; Protocol Magnesium Hydroxide (Milk Of Magnesia) 30 ml PO Q4H PRN PRN Reason: Constipation Metoclopramide HCl (Reglan) 10 mg PO Q6H PRN PRN Reason: Nausea And Vomiting Ondansetron HCl (Zofran) 4 mg IV Q8H PRN PRN Reason: Nausea And Vomiting Promethazine HCl (Phenergan) 25 mg [place] Q6H PRN PRN Reason: Nausea And Vomiting Sodium Chloride (Sodium Chloride Flush Syringe 10 Ml) 10 ml IV BID LEEANN Sodium Chloride (Sodium Chloride Flush Syringe 10 Ml) 10 ml IV PRN PRN PRN Reason: LINE FLUSH Review of Systems Neurological: vertigo, gait dysfunction Exam - Constitutional Vitals: Temp Pulse Resp BP Pulse Ox 97.7 F 83 17 142/79 88 06/21/19 15:50 06/21/19 22:00 06/21/19 22:00 06/21/19 22:00 06/21/19 22:00 General appearance: Present: no acute distress, well-nourished - EENT Eyes: Present: PERRL, EOM intact ENT: hearing intact, clear oral mucosa, dentition normal - Neck Neck: Present: supple, normal ROM - Respiratory Respiratory effort: normal Respiratory: bilateral: CTA - Cardiovascular Rhythm: regular Heart Sounds: Present: S1 & S2 - Extremities Extremities: no ischemia, pulses intact, No edema, Full ROM Peripheral Pulses: within normal limits - Abdominal General gastrointestinal: Present: soft, non-tender, non-distended, normal bowel sounds - Integumentary Integumentary: Present: clear, warm, dry, erythema (Mild redness and tenderness over lower one third of the left leg) - Musculoskeletal Musculoskeletal: strength equal bilaterally - Psychiatric Psychiatric: appropriate mood/affect, intact judgment & insight, cooperative - Neurologic Neurologic: CNII-XII intact, moves all extremities Results - Labs CBC & Chem 7: 06/21/19 16:12 06/21/19 16:12 Labs: Abnormal lab results 06/21/19 06/21/19 06/21/19 Range/Units 16:12 16:12 16:30 MCV 97 H (84-94) fl MCH 33 H (28-32) pg [place] % (Auto) 12.3 H (0.0-7.3) % Creatinine 0.7 L (0.8-1.5) mg/dL Glucose 104 H (75-100) mg/dL Urine pH 8.0 H (5.0-7.0) Assessment and Plan - Patient Problems (1) TIA (transient ischemic attack) Current Visit: No Status: Acute Plan to address problem: Patient admitted and placed on telemetry. Will monitor neurological status. Patient placed on daily aspirin. Patient will be scheduled for MRI of the brain, carotid Doppler. We will request neurology follow-up. (2) Unsteady gait Current Visit: Yes Status: Acute Plan to address problem: Etiology is unclear. Possibly secondary to TIA versus CVA (3) Lower extremity cellulitis Current Visit: Yes Status: Acute Plan to address problem: There appears to be cellulitis of the left lower extremity. Patient placed on empiric IV antibiotics. (4) DVT prophylaxis Current Visit: Yes Status: Acute Plan to address problem: Patient placed on subcutaneous heparin. (5) Full code status Current Visit: Yes Status: Acute
[2019-06-22] MEDS: CLINDAMYCIN 600 MG/50 mL 600 MG/50 ML BAG IV SCH ×3 (05:28→22:33)
[2019-06-22] MEDS: HEPARIN 5,000 UNIT/1 ML VIAL SUB-Q SCH ×3 (05:28→22:34)
[2019-06-22 05:53] LABS: Hematocrit 37.5 % (35.5-45.6); Mean Corpuscular HGB Conc 35 % (32-34); Mean Corpuscular Volume 96 fl (84-94); Platelet Count 198 K/mm3 (140-440); Red Blood Count 3.91 M/mm3 (3.65-5.03); Red Cell Distribution Width 13.4 % (13.2-15.2)
[2019-06-22 06:00] LABS: INR 1.06 (0.87-1.13); Partial Thromboplastin Time 30.6 Sec. (24.2-36.6)
[2019-06-22] MEDS: DICYCLOMINE 10 MG CAP PO SCH ×3 (07:49→20:40)
[2019-06-22] MEDS: LEVOTHYROXINE 112 MCG TAB PO SCH (07:49)
[2019-06-22] MEDS: MAGNESIUM OXIDE 400 MG TAB PO SCH (09:14)
[2019-06-22] MEDS: CLOPIDOGREL 75 MG TAB PO SCH (09:14)
[2019-06-22] MEDS: CELECOXIB 200 MG CAP PO SCH (09:15)
[2019-06-22] MEDS: ASPIRIN 325 MG TAB PO SCH (09:15)
[2019-06-22] MEDS: PANTOPRAZOLE 40 MG TAB PO SCH (09:15)
[2019-06-22] MEDS: ASCORBIC ACID 500 MG TAB PO SCH (09:15)
[2019-06-22] MEDS ORDERED: CYCLOSPORINE OP SCH (10:00)
[2019-06-22] MEDS ORDERED: CHOLECALCIFEROL 25 MG PO SCH (10:00)
[2019-06-22] MEDS ORDERED: FOLIC ACID PO SCH (10:00)
[2019-06-22] MEDS ORDERED: NON-FORMULARY EACH (Ascorbic Acid [Vitamin C] 500 MG) PO SCH (10:00)
[2019-06-22] MEDS ORDERED: NON-FORMULARY EACH (Omeprazole [Omeprazole] 40 MG) PO SCH (10:00)
[2019-06-22] MEDS ORDERED: IRON PO SCH (10:00)
[2019-06-22] MEDS ORDERED: ASCORBIC ACID PO SCH (10:00)
[2019-06-22] MEDS ORDERED: CYANOCOBALAMIN PO SCH (10:00)
[2019-06-22] MEDS ORDERED: MAGNESIUM 250 MG PO SCH (10:00)
--- NOTE | 2019-06-22 10:15 | Consultation ---
History of Present Illness Consult date: 06/22/19 Requesting physician: NAREN FLOWERS Reason for Consult: unsteady gait Chief complaint: ringing of L ear History of present illness: This is a 68-year-old male with a history of right Alexander's palsy dyslipidemia hypothyroidism he's been having over 3 days of left ear ringing tinnitus buzzing sound "sounds like crashing waves" agents also complains of dizziness and unsteady feet the dizziness is some vertigo-like symptoms that's worse with position change and improves while laying still no other concomitant stroke like deficits Patient denies any hearing loss Patient denies headache Patient denies ongoing nausea vomiting he denies any change of speech No prior history of stroke Currently patient has no focal brain deficits Telemetry is negative for atrial fibrillation EKG normal sinus Last time known well was 10 AM yesterday, that's when his unsteady gait started Patient denies any issues with coordination Patient states since being here his gait has improved and he does not feel unsteady but when it was really bad yesterday 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 CT head was negative CT abdomen was negative Patient arrived with similar symptoms 2019 MRI was negative CTA of the head and neck was also negative No loss of consciousness seizures or fever No neck stiffness Today patient feels his symptoms have improved since arriving he still has a little bit of vertiginous symptoms with left ear tinnitus but overall is not feeling as bad and he has not developed any stroke like deficits overnight No numbness tingling No bowel and bladder deficits No facial droop difficulty with swallowing Patient states he has chronic right eye ptosis however looking at him today l ooks like he has bilateral ptosis and he does admit to double vision occasionally no Falls or trauma Review of systems all other systems negative Family history negative for neurologic disease Social history negative for tobacco or drugs Left lower Eckstrom E cellulitis active issue No neck pain or radicular symptoms UDS negative Past History Past Medical History: arthritis, hyperlipidemia, hypothyroidism, other (History of Alexander's palsy) Past Surgical History: appendectomy, cholecystectomy, total knee replacement (Left total knee replacement, arthroscopic surgery in the left knee in the past) Social history: no significant social history Family history: CAD (Both parents had CVA and PR and at ages 80), stroke Medications and Allergies Allergies Allergy/AdvReac Type Severity Reaction Status Date / Time Penicillins Allergy Rash Verified 07/23/18 09:40 Home Medications Medication Instructions Recorded Confirmed Last Taken Type Clopidogrel [Plavix] 75 mg PO QDAY #30 tablet 09/23/17 06/21/19 Unknown Rx Ascorbic Acid [Vitamin C] 500 mg PO DAILY 06/21/19 06/21/19 Unknown History Carboxymethylcellulose Sodium 1 - 2 drop OU TID 06/21/19 06/21/19 Unknown History [Thera Tears 1%] Celecoxib [celeBREX] 200 mg PO DAILY 06/21/19 06/21/19 Unknown History Cholecalciferol (Vitamin D3) 25 mg PO DAILY 06/21/19 06/21/19 Unknown History [Vitamin D3] Dicyclomine [Bentyl] 10 mg PO TID 06/21/19 06/21/19 Unknown History Iron,Carb/Vit C/Vit B12/Folic 60 mg PO DAILY 06/21/19 06/21/19 Unknown History [Iron 100 Plus Tablet] Levothyroxine [Synthroid] 112 mcg PO QAM 06/21/19 06/21/19 Unknown History Lovastatin 20 mg PO HS 06/21/19 06/21/19 Unknown History Magnesium 250 mg PO DAILY 06/21/19 06/21/19 Unknown History Omeprazole 40 mg PO DAILY 06/21/19 06/21/19 Unknown History cycloSPORINE (NF) [Restasis (Nf)] 1 each OP BID 06/21/19 06/21/19 Unknown Hi story traMADoL [Ultram 50 MG tab] 50 mg PO TID PRN 06/21/19 06/21/19 Unknown History Active Meds: Active Medications Acetaminophen (Tylenol) 650 mg PO Q4H PRN PRN Reason: Pain MILD(1-3)/Fever >100.5/ANAYA Ascorbic Acid (Vitamin C) 500 mg PO QDAY [facility] Last Admin: 06/22/19 09:15 Dose: 500 mg Documented by: Aspirin (Aspirin) 325 mg PO QDAY [facility] Last Admin: 06/22/19 09:15 Dose: Not Given Documented by: Bisacodyl (Dulcolax) 10 mg SD QDAY PRN PRN Reason: Constipation Celecoxib (Celebrex) 200 mg PO DAILY [facility] Last Admin: 06/22/19 09:15 Dose: 200 mg Documented by: Clopidogrel Bisulfate (Plavix) 75 mg PO QDAY [facility] Last Admin: 12/25/19 09:14 Dose: 75 mg Documented by: Dicyclomine HCl (Bentyl) 10 mg PO TID [facility] Last Admin: 06/22/19 07:49 Dose: 10 mg Documented by: Heparin Sodium (Porcine) (Heparin) 5,000 unit SUB-Q Q8HR [facility] Last Admin: 06/22/19 05:28 Dose: 5,000 unit Documented by: Clindamycin HCl (Cleocin 600 Mg/50 Ml) 600 mg in 50 mls @ 100 mls/hr IV Q8HR [facility]; Protocol Last Admin: 06/22/19 05:28 Dose: 100 mls/hr Documented by: Levothyroxine Sodium (Synthroid) 112 mcg PO QAM@0600 [facility] Last Admin: 06/22/19 07:49 Dose: 112 mcg Documented by: Magnesium Hydroxide (Milk Of Magnesia) 30 ml PO Q4H PRN PRN Reason: Constipation Magnesium Oxide (Mag-Ox) 400 mg PO QDAY [facility] Last Admin: 06/22/19 09:14 Dose: 400 mg Documented by: Metoclopramide HCl (Reglan) 10 mg PO Q6H PRN PRN Reason: Nausea And Vomiting Miscellaneous Medication (Cyclosporine (Nf)) 1 each OP BID [facility] Miscellaneous Medication (Iron,Carb/Vit C/Vit B12/Folic [Iron 100 Plus Tablet]) 60 mg PO DAILY [facility] Miscellaneous Medication (Cholecalciferol (Vitamin D3) [Vitamin D3]) 25 mg PO DAILY [facility] Ondansetron HCl (Zofran) 4 mg IV Q8H PRN PRN Reason: Nausea And Vomiting Pantoprazole Sodium (Protonix) 40 mg PO DAILY [facility] Last Admin: 06/22/19 09:15 Dose: 40 mg Documented by: Pravastatin Sodium (Pravachol) 20 mg PO QHS [facility] Promethazine HCl (Phenergan) 25 mg SD Q6H PRN PRN Reason: Nausea And Vomiting Sodium Chloride (Sodium Chloride Flush Syringe 10 Ml) 10 ml IV BID [facility] Last Admin: 06/22/19 09:21 Dose: 10 ml Documented by: Sodium Chloride (Sodium Chloride Flush Syringe 10 Ml) 10 ml IV PRN PRN PRN Reason: LINE FLUSH Tramadol HCl (Ultram) 50 mg PO TID PRN PRN Reason: Pain, Moderate (4-6) Physical Examination - Vital Signs Vital Signs: Vital Signs Temp Pulse Resp BP Pulse Ox 97.7 F 76 18 125/84 97 06/21/19 15:50 06/21/19 15:50 06/21/19 15:50 06/21/19 15:50 06/21/19 15:50 AO 4 no aphasia Cranial nerve examination 2 through 12 reveals bilateral ptosis, right worse than left When asking person to sustain upgaze, I do see a positive curtain sign he has good mouth closure strength good tongue protrusion strength Patient's eye closure strength weak on the right and strong on the left, R eyelid closure weakness may be secondary to old R Alexander's palsy No double vision Visual [place] are full Face is symmetrical. Sensation intact over the face tongue is midline no discharge nose or ears No dysarthria Patient states his is droopy eyes because he's tired He denies any difficulty with swallowing 5 out of 5 strength throughout there is no proximal weakness Sensations intact throughout EOMI PERRLA No cerebellar signs No extra movements pulses good 4 abdomen soft neck is supple Tone is symmetrical throughout Tendon reflexes are symmetrical throughout Skin erythema over her left lower extremity Results - Laboratory Findings CBC and BMP: 06/22/19 04:58 06/21/19 16:12 Abnormal Lab Findings: Abnormal Labs 06/21/19 06/21/19 06/21/19 16:12 16:12 16:30 MCV 97 H MCH 33 H MCHC [place] % (Auto) 12.3 H Creatinine 0.7 L Glucose 104 H Urine pH 8.0 H 06/22/19 04:58 MCV 96 H MCH 33 H MCHC 35 H [place] % (Auto) Creatinine Glucose Urine pH Assessment and Plan Dizziness unsteady gaits left ear tinnitus vertigo, less likely central process/new stroke, more likely peripheral process , stable No recurrent stroke like deficits or recurrent neurological decline, in fact patient had no concomitant stroke like deficits during his vertigo to suggest brainstem stroke or posterior circulation stroke No loss of consciousness or seizures no headache/migraine no atrial fibrillation MRI brain pending Continue current managements to help control symptoms Aspirin until MRI negative Telemetry A1c lipids Carotid studies If MRI brain is positive for stroke echo with bubble CTA head and neck Fall precautions and evaluation by PT Follow up with ENT once MRI brain negative, differential diagnosis BPPV, vest. neuritis , herpes zoster I also have a second concern of possible myasthenia gravis patient's bilateral ptosis positive curtain sign along with double vision during the day, stable Myasthenia gravis panel lab send out [place] challenge after MRI brain, I will see patient again tomorrow if he still has ptosis then I will do the [place] challenge For now avoid medications that may exacerbate myasthenia pulm function studies, NIF, VC
[2019-06-22 10:27] LABS: Basophils % (Manual) 0 % (0.0-1.8); Platelet Estimate Consistent w Auto; RBC Morphology Normal; Total Cells Counted 100
--- NOTE | 2019-06-22 10:27 | Progress Note ---
Assessment and Plan Assessment and plan: TIA/CVA. Neurology consulted. CT head negative. Follow-up MRI brain and carotid Dopplers. Continue neurochecks and telemetry monitoring. PT/OT Ataxia. Etiology is unclear. Await MRI results. Lower extremity cellulitis. Continue IV antibiotics for now. DVT prophylaxis. Continue subcutaneous heparin History Interval history: No new issues overnight. Patient complains of left tinnitus. Hospitalist Physical - Constitutional Vitals: Temp Pulse Resp BP Pulse Ox 98.9 F 92 H 18 120/71 97 06/22/19 07:45 06/22/19 10:14 06/22/19 10:14 06/22/19 07:45 06/22/19 10:14 General appearance: Present: no acute distress, well-nourished - EENT Eyes: Present: PERRL, EOM intact ENT: hearing intact, clear oral mucosa, dentition normal - Neck Neck: Present: supple, normal ROM - Respiratory Respiratory effort: normal Respiratory: bilateral: CTA - Cardiovascular Rhythm: regular Heart Sounds: Present: S1 & S2. Absent: gallop, rub - Extremities Extremities: no ischemia, No edema, Full ROM - Abdominal General gastrointestinal: soft, non-tender, non-distended, normal bowel sounds - Integumentary Integumentary: Present: clear, warm, dry - Neurologic Neurologic: CNII-XII intact, moves all extremities Results - Labs CBC & Chem 7: 06/22/19 04:58 06/21/19 16:12 Labs: Laboratory Last Values WBC 5.3 K/mm3 (4.5-11.0) 06/22/19 04:58 RBC 3.91 M/mm3 (3.65-5.03) 06/22/19 04:58 Hgb 13.0 gm/dl (11.8-15.2) 06/22/19 04:58 Hct 37.5 % (35.5-45.6) 06/22/19 04:58 MCV 96 fl (84-94) H 06/22/19 04:58 MCH 33 pg (28-32) H 06/22/19 04:58 MCHC 35 % (32-34) H 06/22/19 04:58 RDW 13.4 % (13.2-15.2) 06/22/19 04:58 Plt Count 198 K/mm3 (140-440) 06/22/19 04:58 Lymph % (Auto) 19.7 % (13.4-35.0) 06/21/19 16:12 [place] % (Auto) 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 (12.2-14.9) 06/22/19 04:58 INR 1.06 (0.87-1.13) 06/22/19 04:58 APTT 30.6 Sec. (24.2-36.6) 06/22/19 04:58 Sodium 139 mmol/L (137-145) 06/21/19 16:12 Potassium 4.0 mmol/L (3.6-5.0) 06/21/19 16:12 Chloride 100.4 mmol/L (98-107) 06/21/19 16:12 Carbon Dioxide 25 mmol/L (22-30) 06/21/19 16:12 Anion Gap 18 mmol/L 06/21/19 16:12 BUN 10 mg/dL (9-20) 06/21/19 16:12 Creatinine 0.7 mg/dL (0.8-1.5) L 06/21/19 16:12 Estimated GFR > 60 ml/min 06/21/19 16:12 BUN/Creatinine Ratio 14 % 06/21/19 16:12 Glucose 104 mg/dL (75-100) H 06/21/19 16:12 Calcium 9.0 mg/dL (8.4-10.2) 06/21/19 16:12 Magnesium 2.20 mg/dL (1.7-2.3) 06/21/19 18:24 Total Creatine Kinase 138 units/L (55-170) 06/21/19 18:24 Urine Color Yellow (Yellow) 06/21/19 16:30 Urine Turbidity Clear (Clear) 06/21/19 16:30 Urine pH 8.0 (5.0-7.0) H 06/21/19 16:30 Ur Specific [place] 1.014 (1.003-1.030) 06/21/19 16:30 Urine Protein <15 mg/dl mg/dL (Negative) 06/21/19 16:30 Urine Glucose (UA) Neg mg/dL (Negative) 06/21/19 16:30 Urine Ketones Neg mg/dL (Negative) 06/21/19 16:30 Urine Blood Neg (Negative) 06/21/19 16:30 Urine Nitrite Neg (Negative) 06/21/19 16:30 Urine Bilirubin Neg (Negative) 06/21/19 16:30 Urine Urobilinogen < 2.0 mg/dL (<2.0) 06/21/19 16:30 Ur Leukocyte Esterase Neg (Negative) 06/21/19 16:30 Urine WBC (Auto) < 1.0 /HPF (0.0-6.0) 06/21/19 16:30 Urine RBC (Auto) 1.0 /HPF (0.0-6.0) 06/21/19 16:30 Urine Mucus Few /HPF 06/21/19 16:30 Urine Opiates Screen Presumptive negative 06/21/19 16:30 Urine Methadone Screen Presumptive negative 06/21/19 16:30 Ur Barbiturates Screen Presumptive negative 06/21/19 16:30 Ur Phencyclidine Scrn Presumptive negative 06/21/19 16:30 Ur Amphetamines Screen Presumptive negative 06/21/19 16:30 U Benzodiazepines Scrn Presumptive negative 06/21/19 16:30 Urine Cocaine Screen Presumptive negative 06/21/19 16:30 U Marijuana (THC) Screen Presumptive negative 06/21/19 16:30 Drugs of Abuse Note Disclamer 06/21/19 16:30 Active Medications - Current Medications Current Medications: Generic Name Dose Route Start Last Admin Trade Name Freq PRN Reason Stop Dose Admin Acetaminophen 650 mg 06/21/19 22:08 Tylenol PO Q4H PRN Pain MILD(1-3)/Fever >100.5/ANAYA Ascorbic Acid 500 mg 06/22/19 10:00 06/22/19 09:15 Vitamin C PO 500 mg QDAY [facility]EE[facility] Administration Aspirin 325 mg 06/22/19 10:00 06/22/19 09:15 Aspirin PO Not Given QDAY LEEANN Bisacodyl 10 mg 06/21/19 22:08 Dulcolax OR QDAY PRN Constipation Celecoxib 200 mg 06/22/19 10:00 06/22/19 09:15 Celebrex PO 200 mg DAILY [facility] Administration Clopidogrel Bisulfate 75 mg 06/22/19 10:00 06/22/19 09:14 Plavix PO 75 mg QDAY [facility] Administration Dicyclomine HCl 10 mg 06/22/19 08:00 06/22/19 07:49 Bentyl PO 10 mg TID [facility] Administration Heparin Sodium (Porcine) 5,000 unit 06/22/19 06:00 06/22/19 05:28 Heparin SUB-Q 5,000 unit Q8HR [facility] Administration Clindamycin HCl 600 mg in 50 mls @ 100 mls/hr 06/22/19 06:00 06/22/19 05:28 Cleocin 600 Mg/50 Ml IV 100 mls/hr Q8HR [facility] Administration Protocol Levothyroxine Sodium 112 mcg 06/22/19 06:00 06/22/19 07:49 Synthroid PO 112 mcg QAM@0600 [facility] Administration Magnesium Hydroxide 30 ml 06/21/19 22:08 Milk Of Magnesia PO Q4H PRN Constipation Magnesium Oxide 400 mg 06/22/19 10:00 06/22/19 09:14 Mag-Ox PO 400 mg QDAY [facility] Administration Metoclopramide HCl 10 mg 06/21/19 22:08 Reglan PO Q6H PRN Nausea And Vomiting Miscellaneous Medication 1 each 06/22/19 10:00 Cyclosporine (Nf) OP BID [facility] Miscellaneous Medication 60 mg 06/22/19 10:00 Iron,Carb/Vit C/Vit B12/Folic [Iron 100 Plus Tablet] PO DAILY [facility] Miscellaneous Medication 25 mg 06/22/19 10:00 Cholecalciferol (Vitamin D3) [Vitamin D3] PO DAILY [facility] Ondansetron HCl 4 mg 06/21/19 22:08 Zofran IV Q8H PRN Nausea And Vomiting Pantoprazole Sodium 40 mg 06/22/19 10:00 06/22/19 09:15 Protonix PO 40 mg DAILY [facility] Administration Pravastatin Sodium 20 mg 06/22/19 22:00 Pravachol PO QHS [facility] Promethazine HCl 25 mg 06/21/19 22:08 Phenergan OR Q6H PRN Nausea And Vomiting Sodium Chloride 10 ml 06/22/19 10:00 06/22/19 09:21 Sodium Chloride Flush Syringe 10 Ml IV 10 ml BID [facility] Administration Sodium Chloride 10 ml 06/21/19 22:08 Sodium Chloride Flush Syringe 10 Ml IV PRN PRN LINE FLUSH Tramadol HCl 50 mg 06/22/19 05:22 Ultram PO TID PRN Pain, Moderate (4-6)
[2019-06-22 10:37] LABS: BUN/Creatinine Ratio 16; Blood Urea Nitrogen 11 mg/dL (9-20); Calcium 8.6 mg/dL (8.4-10.2); Hemolysis Index 4; LDL Cholesterol,Direct 69 mg/dL (50-130)
[2019-06-22] MEDS: CHOLECALCIFEROL (VIT D3) 1000 UNIT TAB PO SCH (11:37)
[2019-06-22] MEDS: FE FUMARATE/FA/MV, MIN COMB#15 CAP (HEMOCYTE PLUS) PO SCH (12:57)
[2019-06-22] MEDS ORDERED: DEXTROSE 50% IN WATER (25GM) 50 ML SYRINGE IV PRN (15:31)
[2019-06-22] MEDS ORDERED: LOVASTATIN 20 MG PO SCH (22:00)
[2019-06-22] MEDS ORDERED: PRAVASTATIN 20 MG TAB PO SCH (22:00)
[2019-06-23] MEDS: traMADol 50 MG TAB PO PRN ×2 (03:23→10:51)
[2019-06-23 05:29] LABS: Basophils # (Auto) 0.1 K/mm3 (0.0-0.1); Basophils % (Auto) 0.8 % (0.0-1.8); Eosinophils # (Auto) 0.2 K/mm3 (0.0-0.4); Eosinophils % (Auto) 2.7 % (0.0-4.3); Hemoglobin 13.7 gm/dl (11.8-15.2); Lymphocytes # (Auto) 1.7 K/mm3 (1.2-5.4); Lymphocytes % (Auto) 24.2 % (13.4-35.0); Monocytes # (Auto) 1.1 K/mm3 (0.0-0.8); Monocytes % (Auto) 15.6 % (0.0-7.3)
[2019-06-23 05:42] LABS: HDL Cholesterol 46 mg/dL (40-59)
[2019-06-23] MEDS: CLINDAMYCIN 600 MG/50 mL 600 MG/50 ML BAG IV SCH ×2 (05:48→13:06)
[2019-06-23 05:49] LABS: Hematocrit 40.1 % (35.5-45.6); Mean Corpuscular HGB Conc 35 % (32-34); Mean Corpuscular Volume 96 fl (84-94); Platelet Count 207 K/mm3 (140-440); Red Blood Count 4.17 M/mm3 (3.65-5.03); Red Cell Distribution Width 13.5 % (13.2-15.2)
[2019-06-23] MEDS: LEVOTHYROXINE 112 MCG TAB PO SCH (05:49)
[2019-06-23] MEDS: HEPARIN 5,000 UNIT/1 ML VIAL SUB-Q SCH ×2 (05:49→13:06)
[2019-06-23 05:50] LABS: BUN/Creatinine Ratio 13; Blood Urea Nitrogen 9 mg/dL (9-20); Calcium 8.8 mg/dL (8.4-10.2); Hemolysis Index 4
[2019-06-23] MEDS: DICYCLOMINE 10 MG CAP PO SCH ×2 (07:25→13:10)
[2019-06-23 09:33] VITALS: BP 115/58
--- NOTE | 2019-06-23 09:53 | Magnetic Resonance Report ---
MRI BRAIN WITHOUT CONTRAST INDICATION / CLINICAL INFORMATION: stroke. TECHNIQUE: Multiplanar, multisequence MR images of the brain were obtained. COMPARISON: The study is compared to the previous MRI of 09/22/2017. FINDINGS: BRAIN / INTRACRANIAL CONTENTS: There is moderate cerebral white matter disease most oblique involving the periventricular regions. Furthermore, there appear to be old the small lacunar infarcts adjacent to to the right frontal horn. The findings correlate with the previous MRI. The diffusion imaging re veals no evidence of acute infarction. The ventricular system remains appropriate in size and configuration. No developing extra-axial fluid collections or significant mass effect is identified. CRANIOCERVICAL JUNCTION: No significant abnormality. VASCULAR FLOW-VOIDS: No significant abnormality. ORBITS: No significant abnormality of visualized orbits. SINUSES / MASTOIDS: There are persistent small retention cysts along the inferior right maxillary sin us. The mastoid air cells are clear. ADDITIONAL FINDINGS: None. IMPRESSION: 1. There is continued moderate microvascular angiopathy as described without evidence of acute infarc tion. Signer Name: Reagan Staples MD Signed: 06/23/2019 9:49 AM Workstation Name: [id number]
[2019-06-23] MEDS: PANTOPRAZOLE 40 MG TAB PO SCH (10:47)
[2019-06-23] MEDS: ASCORBIC ACID 500 MG TAB PO SCH (10:47)
[2019-06-23] MEDS: ASPIRIN 325 MG TAB PO SCH (10:48)
[2019-06-23] MEDS: MAGNESIUM OXIDE 400 MG TAB PO SCH (10:48)
[2019-06-23] MEDS: FE FUMARATE/FA/MV, MIN COMB#15 CAP (HEMOCYTE PLUS) PO SCH (10:48)
[2019-06-23] MEDS: CHOLECALCIFEROL (VIT D3) 1000 UNIT TAB PO SCH (10:49)
[2019-06-23] MEDS: CLOPIDOGREL 75 MG TAB PO SCH (10:49)
[2019-06-23] MEDS: CELECOXIB 200 MG CAP PO SCH (10:49)
--- NOTE | 2019-06-23 11:07 | Discharge Summary ---
Providers - Providers Date of Admission: 06/23/19 10:13 Date of discharge: 06/23/19 Attending physician: DARRION MONTES 06/21/19 22:08 Consult to Dietitian/Nutrition [CONS] Routine Physician Instructions: Reason For Exam: Reason for Consult: Nutrition Recommendations Reason for Consult: Diet education Consult to Physician [CONS] Routine Comment: Consulting Provider: REFUGIO MARTINEZ Physician Instructions: Reason For Exam: R/O CVA Occupational Therapy Evaluate and Treat [CONS] Routine Comment: Reason For Exam: Neuro deficits Physical Therapy Evaluation and Treat [CONS] Routine Comment: Reason For Exam: Neuro deficits Primary care physician: SMELTER OPERATOR Hospitalization Reason for admission: BPV Condition: Stable Hospital course: This is a 68-year-old male with a history of right Alexander's palsy dyslipidemia hypothyroidism who presented with c/o left ear ringing tinnitus buzzing sound and dizziness/vertigo-like symptoms 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 however, pt had no other concomitant stroke like deficits. Neurology saw the patient in consultation and recommended echocardiogram and MRI of the brain. If the MRI brain was negative for acute infarction and only showed chronic microvascular changes. Therefore, patient discharge diagnosis diagnosis of benign positional vertigo and will be given a trial of meclizine. Neurology also had a second concern of possible myasthenia gravis patient's bilateral ptosis positive curtain sign along with double vision during the day, stable. Myasthenia gravis panel lab send out and can be followed up as an outpatient with neurology. Other complications during hospital stay included mild cellulitis of the lower extremity which was treated with IV antibiotics of clindamycin. Patient also has nausea vomiting on admission that was likely related to BPV. CT scan of abdomen pelvis was completed which was found to be negative. Dedicated discharge time 35 minutes. Disposition: DC-01 TO HOME OR SELFCARE Time spent for discharge: 35 - Discharge Diagnoses (1) BPV (benign positional vertigo) Status: Acute Core Measure Documentation - Palliative Care Palliative Care/ Comfort Measures: Not Applicable - Core Measures Any of the following diagnoses?: none Exam - Constitutional Vitals: Temp Pulse Resp BP Pulse Ox 98.4 F 78 20 115/58 95 06/23/19 07:17 06/23/19 07:17 06/23/19 07:17 06/23/19 07:17 06/23/19 07:17 General appearance: Present: no acute distress, well-nourished - EENT Eyes: Present: PERRL ENT: hearing intact, clear oral mucosa - Neck Neck: Present: supple, normal ROM - Respiratory Respiratory effort: normal Respiratory: bilateral: CTA - Cardiovascular Heart Sounds: Present: S1 & S2. Absent: rub, click - Extremities Extremities: pulses symmetrical, No edema Peripheral Pulses: within normal limits - Abdominal General gastrointestinal: Present: soft, non-tender, non-distended, normal bowel sounds Male genitourinary: Present: normal - Integumentary Integumentary: Present: clear, warm, dry - Musculoskeletal Musculoskeletal: gait normal, strength equal bilaterally - Psychiatric Psychiatric: appropriate mood/affect, intact judgment & insight - Neurologic Neurologic: CNII-XII intact, moves all extremities Plan Activity: advance as tolerated Weight Bearing Status: Weight Bear as Tolerated Diet: low fat, low cholesterol Follow up with: PRIMARY CARE, [Primary Care Provider] - 3-5 Days REFUGIO MARTINEZ MD [Staff Physician] - 7 Days Prescriptions: Meclizine [Antivert] 25 mg PO TID PRN #90 tablet PRN Reason: Vertigo levoFLOXacin [Levaquin TAB] 500 mg PO QDAY #7 tablet
--- NOTE | 2019-06-23 14:54 | Vascular Lab Report ---
"DUPLEX DOPPLER ULTRASOUND CAROTID, BILATERAL INDICATION: stroke. FINDINGS: RIGHT CAROTID: Mild plaque Right CCA velocity: 86 cm/sec. Right ICA peak systolic velocity: 66 cm/sec. ICA/CCA PSV Ratio: .77. Right Vertebral Artery: Antegrade flow. LEFT CAROTID: Mild plaque Left CCA velocity: 104 cm/sec. Left ICA peak systolic velocity: 61 cm/sec. ICA/CCA PSV Ratio: .59. Left Vertebral Artery: Antegrade flow. IMPRESSION: 1. Right Internal Carotid Artery: Less than 50% diameter stenosis. 2. Left Internal Carotid Artery: Less than 50% diameter stenosis. Velocity criteria are extrapolated from diameter data as defined by the Society of Radiologists in Ul trasound Consensus Conference, Radiology 2003; 229;340-346. Degree of Stenosis (%) || ICA PSV (cm/sec) || Plaque estimate (%) || ICA/CCA PSV Ratio Normal <125 None <2.0 <50 <125 <50 <2.0 50-69 125-230 50 2.0-4.0 70 but less than 100 >230 50 >4.0 Near occlusion High, low, or none visible variable Total occlusion None visible; no lumen N/A Signer Name: Sivakumar Wan MD Signed: 06/23/2019 2:49 PM Workstation Name: [id number]
== END 2019-06-23 15:15 | disposition home or self-care (01) | DRG 149 ==
LOC: ED 14:42 → 2B-ACE 21:33 → OBSVTOIN 06-23 10:13
PROVIDERS: ADMIT Internal Medicine Geriatric Medicine; ATTEND Hospitalist
PROC: 3E0234Z Introduction of Serum, Toxoid and Vaccine into Muscle, Percutaneous Approach (ICD-10-PCS; principal; 2019-06-21)
DX: H81.12 Benign paroxysmal vertigo, left ear (principal); L03.116 Cellulitis of left lower limb; R26.81 Unsteadiness on feet; M19.90 Unspecified osteoarthritis, unspecified site; E03.9 Hypothyroidism, unspecified; Z96.652 Presence of left artificial knee joint; H93.12 Tinnitus, left ear; G51.0 Bell's palsy; E78.5 Hyperlipidemia, unspecified; Z82.49 Family history of ischemic heart disease and other diseases of the circulatory system; Z90.49 Acquired absence of other specified parts of digestive tract; Z82.3 Family history of stroke; Z88.0 Allergy status to penicillin; Z79.899 Other long term (current) drug therapy; Z23 Encounter for immunization
CPT/HCPCS: 36415; 70450; 70551; 74176; 80048; 80061; 80307; 81001; 82550; 83519; 83735; 85007; 85025; 85610; 85730; 87116; 90471; 90715; 93005; 93010; 93306; 93880; G0378; A9270-GY; J1644; J2405; J7040

== ENCOUNTER → 2019-09-07 | Outpatient (CLI) | payer MEDICARE, OTHER | END | disposition home or self-care (01) | LOC: SLR 11:00 | PROVIDERS: ATTEND Specialist | DX: G47.33 Obstructive sleep apnea (adult) (pediatric) (principal) | CPT/HCPCS: 95810 ==

== ENCOUNTER 2019-09-21 11:00 | Outpatient (CLI) | payer MEDICARE, OTHER | END 2019-09-21 11:01 | disposition home or self-care (01) | LOC: SLR 11:00 | PROVIDERS: ATTEND Specialist | DX: G47.33 Obstructive sleep apnea (adult) (pediatric) (principal) | CPT/HCPCS: 95811 ==